=== PATIENT | male | born 1970 | race Two or more races ===

== ENCOUNTER 2024-12-18 19:07 | Emergency (ER) | payer SELFPAY ==
[~2024-12-18] VITALS: Ht 175.3 cm; Wt 97.5 kg
[2024-12-18] MEDS ORDERED: DOXY100C4 PO (21:14)
--- NOTE | 2024-12-18 21:14 | ED.PDOC ---
History of Present Illness(SKN HPI Comments Pt c/o insect bite x3 weeks. Pt says he saw a "flying insect" land on left shoulder and bite him. Pt says as of 3 days ago pain got worse. Noted large area of redness with puncture wound to left shoulder, denies drainage or fevers. Pt rates pain 10/10. Pt is not UTD on tetanus vaccine. Denies fever, chills, na usea, vomiting or any other bites. This is your diabetes or any other known history. Chief Complaint: Insect Bite Time Seen by MD: 19:23 Primary Care Provider: MEI History of Present Illness: Nurses Notes, Medications, Allergies Allergies: Coded Allergies: NO KNOWN ALLERGIES (Unverified , 02/22/14) Home Meds Active Scripts Doxycycline Hyclate (Doxycycline Hyclate) 100 Mg Cap, 100 MG PO BID for 7 Days, #14 CAP Prov:SALLY TABOR READING INTERVENTIONIST 12/18/24 Information Source: Patient Mode of Arrival: Ambulatory Past Medical History PAST MEDICAL HISTORY: Denies Surgical History: Denies all surgeries Family History Family History: Unknown Social History Smoker: Non-Smoker Alcohol: Denies ETOH Use Drugs: Denies Drug Use Constitutional: denies: chills, diaphoresis, fatigue, fever, malaise, sweats, weakness, others EENTM: denies: blurred vision, double vision, ear bleeding, ear discharge, ear drainage, ear pain, ear ringing, eye pain, eye redness, hearing loss, mouth pain, mouth swelling, nasal discharge, nose bleeding, nose congestion, nose pain, photophobia, tearing, throat pain, throat swelling, voice changes, others Respiratory: denies: cough, hemoptysis, orthopnea, SOB at rest, shortness of breath, SOB with excertion, stridor, wheezing, others Cardiovascular: denies: chest pain, dizzy spells, diaphoresis, Dyspnea on exertion, edema, irregular heart beat, left arm pain, lightheadedness, palpitations, PND, syncope, others Gastrointestinal: denies: abdomen distended, abdominal pain, blood streaked bowels, constipated, diarrhea, dysphagia, difficulty swallowing, hematemesis, melena, nausea, poor appetite, poor fluid intake, rectal bleeding, rectal pain, vomiting, others Genitourinary: denies: burning, dysuria, flank pain, frequency, hematuria, incontinence, penile discharge, penile sore, pain, testicle pain, testicle swelling, urgency, others Neurological: denies: dizziness, fainting, headache, left sided numbness, left sided weakness, numbness, paresthesia, pre-existing deficit, right sided numbness, right sided weakness, seizure, speech problems, tingling, tremors, weakness, others Musculoskeletal: denies: back pain, gout, joint pain, joint swelling, muscle pain, muscle stiffness, neck pain, others Integumetry: reports: wounds (Left shoulder); denies: bruises, change in color, change in hair/nails, dryness, laceration, lesions, lumps, rash, others Allergic/Immunocompromised: denies: Difficulty Healing, Frequent Infections, Hives, Itching, others Hematologic/Lymphatic: denies: anemia, blood clots, easy bleeding, easy bruising, swollen glands, others Endocrine: denies: excessive hunger, excessive sweating, excessive thirst, excessive urination, flushing, intolerance to cold, intolerance to heat, unexplained weight gain, unexplained weight loss, others Psychiatric: denies: anxiety, bipolar disorder, depression, hopeless, panic disorder, schizophrenia, sleepless, suicidal, others Physical Exam General Appearance: No Apparent Distress, Normal HEENT: Normal ENT Inspection, Pharynx Normal Neck: Full Range of Motion, Non-Tender Respiratory: Lungs Clear, No Respiratory Distress, Normal Breath Sounds Cardiovascular: No Edema, No JVD, No Murmur, No Gallop, Normal Peripheral Pulses, Regular Rate/Rhythm Breast Exam: Deferred Gastrointestinal: Non Tender, Soft Genitalia: Deferred Pelvic: Deferred Rectal: Deferred Extremities: Normal capillary refill, Normal inspection, Normal range of motion, Non-tender, No pedal edema Musculoskeletal : Apperance: Normal Neurologic: Alert, preschool program director II-XII nml as Tested, No Motor Deficits, Normal Affect, Normal Mood, No Sensory Deficits Cerebellar Function: Normal Reflexes: Normal Skin: Dry, Normal Color, Warm, Wounds (Top of right shoulder noted half-dollar size lesions indurated erythemic with center puncture wound no noted drainage or streaking warm and tender to touch non fluctuant) Lymphatic: No Adenopathy Was a procedure done? Was a procedure done?: No Differential Diagnosis (INTG) Differential Diagnosis: Atopic dermatitis, Cellulitis, Impetigo X-Ray, Labs, Meds, VS Vital Signs Date Time Temp Pulse Resp B/P (MAP) Pulse Ox O2 Delivery O2 Flow Rate FiO2 12/18/24 21:19 99.0 72 19 149/91 (110) 97 99.0 12/18/24 21:19 72 19 97 Room Air 12/18/24 19:20 98.9 77 18 178/93 (121) 96 98.9 Current Medications Medications (Trade) Dose Ordered Sig/Jeremy Route Start Time Stop Time Status Last Admin Ceftriaxone Sodium (Rocephin) 1,000 mg ONCE ONCE IM 12/18/24 21:15 12/18/24 21:16 DC 12/18/24 21:48 Diphtheria/ Tetanus/Acell Pertussis (Boostrix T-Dap) 0.5 ml ONCE ONCE IM 12/18/24 21:15 12/18/24 21:16 DC 12/18/24 21:48 X-Ray, Labs, Meds, VS Comment Patient given Rocephin 1 g IM tolerated well requesting discharge at this time. Outpatient care script doxycycline twice daily x7 days advised to avoid touching the area take medications as prescribed side effects discussed. Follow up with your PCP in 2 days for re-evaluation if not urgent care or back here in the ER. [id number] Tylenol or Motrin as needed for pain per labeled dosing instructions. ER return precautions given patient indicates understanding agrees with discharge plan of care. Time of 1ST Reevaluation: 21:10 Reevaluation 1ST: Improved Patient Education/Counseling: Diagnosis, Treatment, Prognosis, Need For Follow Up Family Education/Counseling: No Family Present Departure 1 Departure Time of Disposition: 21:13 Impression: Primary Impression: Bug bite with infection Qualified Codes: W57.XXXA - Bitten or stung by nonvenomous insect and other nonvenomous arthropods, initial encounter Disposition: HOME / SELF CARE / HOMELESS Condition: Stable e-Prescriptions Doxycycline Hyclate (Doxycycline Hyclate) 100 Mg Cap 100 MG PO BID for 7 Days, #14 CAP Prov: SALLY TABOR 12/18/24 Discharged With: Self Critical Care Note Critical Care Time?: No Stability Stability form required: SALLY Gonzalez Dec 18, 2024 21:14
[2024-12-18 21:19] VITALS: BP 149/91; PULSE 72; RESP 19; TEMP 99; O2SAT 97
[2024-12-18] MEDS: TETANUS-DIPTH-ACEL PERTUSSIS 0.5ML SYR Tdap IM ONE (21:48)
[2024-12-18] MEDS: cefTRIAXone SOD 1,000 MG VL IM ONE (21:48)
== END 2024-12-18 21:59 | disposition home or self-care (01) ==
LOC: ER 19:07
DX: S41.031A Puncture wound without foreign body of right shoulder, initial encounter (principal); W57.XXXA Bitten or stung by nonvenomous insect and other nonvenomous arthropods, initial encounter; Y93.89 Activity, other specified; Y92.89 Other specified places as the place of occurrence of the external cause; Y99.8 Other external cause status
CPT/HCPCS: 90471; 90715; 96372; 99284; J0696

== ENCOUNTER 2024-12-22 16:39 | Inpatient (IN) | payer MEDICAID ==
[~2024-12-22] VITALS: Ht 175.3 cm; Wt 100.0 kg
[~2024-12-22 16:39] MED LIST: DOXY100C4 PO
--- NOTE | 2024-12-22 16:51 | ED.PDOC ---
SOB-HPI HPI Comments HPI: Poor historian. 54-year-old male presents to the emergency department with a chief complaint of shortness of breath onset today 2 hours ago. Patient was seen [facility] 12/18/24 due to wound on LT arm, prescribed Doxycycline, has been compliant with medication. Patient noticed wound LT arm 3 weeks ago, unsure how it was obtained. This morning, patient believes he removed 2 larvas, states they were alive and moving. Vitals Temperature: 97.7 F Respiratory rate: 16 SpO2: 98% Heart rate: 81 Blood pressure: 176/102 Past Medical History: Denies Past Surgical History: Denies Social History: Denies HPI: Poor Historian. Past Medical History: Past Surgical History: REVIEW OF SYSTEMS: CONSTITUTIONAL: Denies acute: fever, diaphoresis, chills, HEAD: Denies acute: headache, photophobia Eyes: Denies acute: Double vision, vision loss, eye pain, eye discharge. EARS: Denies acute: tinnitus, hearing loss, ear discharge, ear pain, THROAT: Denies acute: sore throat, swelling, difficulty swallowing , pain with swallowing, change in voice. NECK: Denies acute: neck pain, neck swelling, stiff neck. HEART: Denies acute : chest pain, palpitations, LUNGS: Denies acute: wheezing, cough, hemoptysis ABDOMEN: Denies acute: abdominal pain, Nausea, Vomiting, diarrhea, melena , hematemesis, hematochezia SKIN: Denies acute: itchiness. EXTREMITIES: Denies acute: calf pain, numbness, tingling, weakness, denies pain in extremity. Denies acute: Low back pain. Neuro: Denies acute: focal neurological deficit, motor or sensory focal neurological deficit, tremors, seizure like activity, confusion, dizziness, change in mental status, loss of bowel or bladder function, cauda equina like symptoms. : Denies acute: dysuria, hematuria, flank pain, increase in urinary frequency. PSYCH: Denies acute: hallucination, suicidal ideation, homicidal ideation. PHYSICAL EXAM: General: ----mild to moderate----acute distress, awake and alert. Head: normocephalic, atraumatic. Neck: supple, trachea is midline, no swelling. Throat: Normal phonation. Eyes:, no erythema, no purulent discharge, no proptosis, no icterus. Heart: regular rate, regular rhythm, no significant murmur appreciated. Lungs: no apparent respiratory distress, Able to speak in full sentences. No wheezing, no rhonchi, no crackles. No stridors Clear to auscultation bilaterally. Abdomen: non tender to palpation, non distended, soft, no guarding, no rebound, + bowel sounds. Neuro: Awake, Alert, oriented to name, self, situation, follows commands GCS=15. Speech is normal. Skin: no petechia, no purpura, no cyanosis, non-pale, not jaundice. Lower extremities: --no - Pitting edema no deformity, no focal swelling, no calf TTP. Makes eye contact. moves all four extremities. Face: no apparent facial droop. Ambulating in the ED independently. Evaluation of the left shoulder wound: Noted ulcerating left deltoid wound with mild erythema and mild swelling. Patient is neurovascularly intact in the affected extremity. Radial pulses palpable. Sensory and motor are present. ED COURSE: Time Seen by MD: 16:45 Primary Care Provider: MEI Reviewed notes: Nurses Notes, Medications, Allergies Information Source: Patient Severity: Moderate Timing: Hours Duration: Since onset Context: At Rest PE Risk Factors: None History of: Recent Antibiotic Prehospital treatment: None Modifying Factors: Nothing Associated Signs and Symptoms: Cough, Other Radiation: No Radiation If cough with SOB: Non-Productive Past Medical History PAST MEDICAL HISTORY: Denies Surgical History: Denies all surgeries Family History Family History: Unknown Social History Smoker: Non-Smoker Alcohol: Denies ETOH Use Drugs: Denies Drug Use Lives In: Home Was a procedure done? Was a procedure done?: No Differential Dx Differential Diagnosis: Other (DDx include ACS, unstable angina, anxiety, PE, pneumothroax, neoplasm, cardiac ischemia, COPD, asthma, CHF, pleural effusion, tobacco abuse, pneumonia, hypoxia, hypercapnia, anemia., infection/sepsis., pulmonary edema. Asthma, Cardiac tamponade, infection.) X-Ray, Labs, Meds, VS Vital Signs Date Time Temp Pulse Resp B/P (MAP) Pulse Ox O2 Delivery O2 Flow Rate FiO2 12/22/24 20:00 97.5 62 15 132/87 (102) 97 97.5 12/22/24 17:17 97.7 68 15 149/78 (101) 95 97.7 12/22/24 17:11 Room Air* 0 21 12/22/24 16:52 97.7 81 16 176/102 (126) 98 97.7 Lab Test 12/22/24 20:14 12/22/24 18:33 12/22/24 18:22 12/22/24 17:17 Range/Units Troponin I High Sensitivity 4 4 3 L </=54 ng/L Blood Gas Specimen Type Arterial Blood Gas Sample Site Left radial Blood Gas Patient Temperature 37.0 Arterial Blood Date Drawn [id number] Arterial Blood pH 7.440 7.350-7.450 Arterial Blood Partial Pressure CO2 36.0 35.0-48.0 mmHg Arterial Blood Partial Pressure O2 85.5 83.0-108.0 mmHg Arterial Blood HCO3 23.9 21.0-28.0 mmol/L Arterial Blood Oxygen Saturation 96.1 94.0-98.0 % Arterial Blood Base Excess 0.2 -2.0-3.0 mmol/L Arterial Blood Oxyhemoglobin 95.3 94.0-98.0 % Arterial Blood Carboxyhemoglobin 0.6 0.5-1.5 % Arterial Blood Methemoglobin 0.2 0.0-1.5 % Moisés Test Yes Blood Gas Total Hemoglobin 13.70 13.5-17.5 g/dL Blood Gas Modality Room air FiO2 % 21.0 White Blood Count 4.7 4.4-10.8 10^3/uL Red Blood Count 4.94 4.5-5.90 10^6/uL Hemoglobin 13.8 13.5-17.5 g/dL Hematocrit 41.5 41.0-53.0 % Mean Corpuscular Volume 83.9 80.0-100.0 fL Mean Corpuscular Hemoglobin 27.9 L 28.0-32.0 pg Mean Corpuscular Hemoglobin Concent 33.2 32.0-36.0 g/dL Red Cell Distribution Width 14.0 11.8-14.3 % Platelet Count 252 140-450 10^3/uL Mean Platelet Volume 7.7 6.9-10.8 fL Neutrophils (%) (Auto) 40.2 37.0-80.0 % Lymphocytes (%) (Auto) 44.2 10.0-50.0 % Monocytes (%) (Auto) 7.1 0.0-12.0 % Eosinophils (%) (Auto) 7.7 H 0.0-7.0 % Basophils (%) (Auto) 0.8 0.0-2.0 % Neutrophils # (Auto) 1.9 1.6-8.6 10 ^3/uL Lymphocytes # (Auto) 2.1 0.4-5.4 10 ^3/uL Monocytes # (Auto) 0.3 0-1.3 10 ^3/uL Eosinophils # (Auto) 0.4 0-0.8 10 ^3/uL Basophils # (Auto) 0 0-0.2 10 ^3/uL Nucleated Red Blood Cells 0.1 % Erythrocyte Sedimentation Rate 18 0-20 mm/hr D-Dimer, Quantitative 0.53 H 0.0-0.49 mg/L FEU Sodium Level 141 136-145 mmol/L Potassium Level 3.7 3.5-5.1 mmol/L Chloride Level 105 98-107 mmol/L Carbon Dioxide Level 26 20-31 mmol/L Anion Gap 10 5-15 Blood Urea Nitrogen 14 9-23 mg/dL Creatinine 1.16 0.700-1.30 mg/dL Glomerular Filtration Rate Calc 75 >90 mL/min BUN/Creatinine Ratio 12.1 10.0-20.0 Serum Glucose 95 74-106 mg/dL Lactic Acid Level 2.0 0.4-2.0 mmol/L Calcium Level 10.1 8.7-10.4 mg/dL Total Bilirubin 0.5 0.2-1.0 mg/dL Aspartate Amino Transferase (AST) 12 L 13-40 U/L Alanine Aminotransferase (ALT) 29 7-40 U/L Alkaline Phosphatase 92 46-116 U/L C-Reactive Protein High Sensitivity 0.73 <1.0 mg/dL B-Type Natriuretic Peptide 11.10 0-100 pg/mL Total Protein 7.5 5.7-8.2 g/dL Albumin 4.8 3.2-4.8 g/dL Current Medications Medications (Trade) Dose Ordered Sig/Jeremy Route Start Time Stop Time Status Last Admin Vancomycin HCl 250 ml @ 250 mls/hr ONCE ONCE IV 12/22/24 19:30 12/22/24 20:29 DC 12/22/24 20:04 [place] [id number] Ph: [phone] DIAGNOSTIC IMAGING Diagnostic Imaging Report : [id number] Signed PATIENT: DUONG MAYNE ACCT: [id number] UNIT: [id number] : 1970 LOC: ER ROOM / BED: / AGE / SEX: 54 / M ADM STATUS: REG ER SERVICE 1643 ORDERING PHYSICIAN: CAYDEN SALAS DO PROCEDURE(s): CXRP - CHEST PORTABLE REASON: sob ORDER NUMBER(s): [id number], ACCESSION NUMBER(s): [id number] CHEST RADIOGRAPH Indication: sob Technique: Single frontal view of the chest was obtained Comparison: None FINDINGS: Lines and Tubes: None Lungs: No focal consolidation. Pleura: No effusion. No pneumothorax. Cardiomediastinal contours: Unremarkable Bones: No acute osseous abnormality. IMPRESSION: 1. No acute cardiopulmonary disease. ATED BY: SELWYN JOSEPH MD DICTATED DATE/TIME: 12/22/241823 SIGNED BY: SELWYN JOSEPH MD SIGNED DATE/TIME: 12/22/241823 CC: [place] [id number] Ph: [phone] DIAGNOSTIC IMAGING Diagnostic Imaging Report : [id number] Signed PATIENT: DUONG WOODS ACCT: [id number] UNIT: [id number] : 1970 LOC: ER ROOM / BED: / AGE / SEX: 54 / M ADM STATUS: REG ER SERVICE 181 ORDERING PHYSICIAN: CAYDEN SALAS DO PROCEDURE(s): CTACH - CT ANGIO CHEST CONTRAST REASON: sob ORDER NUMBER(s): [id number], ACCESSION NUMBER(s): [id number] CTA Chest with intravenous contrast INDICATION: sob COMPARISON: None TECHNIQUE: Multidetector spiral CTA of the chest was performed of the chest with intravenous contrast. PULMONARY ANGIOGRAPHY PROTOCOL was utilized using a bolus- tracking technique centered on the main pulmonary artery. Axial, coronal and sagittal multiplanar and MIP reformats were performed. Radiation Dose : 1. Chest: CTDI volume is mGy. Dose-length product is mGy*cm The dose indicators for CT are the volume Computed Tomography (CT) Dose Index (CTDIvol) and the Dose Length Product (DLP), and are measured in units of mGy and mGy-cm, respectively. These indicators are not patient dose, but values generated from the CT scanner acquisition factors. The report includes radiation exposure data for exposures received during this examination. Findings: Pulmonary artery: No evidence of pulmonary embolism. Lower neck: Unremarkable. Lungs: No consolidation. Pleura: No pleural effusion or pneumothorax. Heart/Vascular Structures: Normal heart size. No pericardial effusion. Normal thoracic aorta. Mediastinum / Lymph Nodes: No abnormality demonstrated. No lymphadenopathy. Musculoskeletal: No osseous abnormality. Soft tissues: Unremarkable. Visualized Upper abdomen: Unremarkable. IMPRESSION: No abnormality demonstrated. ATED BY: JHONY SARKAR MD DICTATED DATE/TIME: 12/22/242112 SIGNED BY: JHONY SARKAR MD SIGNED DATE/TIME: 12/22/242112 CC: [place] [id number] Ph: [phone] DIAGNOSTIC IMAGING Diagnostic Imaging Report : [id number] Signed PATIENT: DUONG WOODS AACCT: [id number] UNIT: [id number] : 1970 LOC: ER ROOM / BED: / AGE / SEX: 54 / M ADM STATUS: REG ER SERVICE 11 ORDERING PHYSICIAN: CAYDEN SALAS DO PROCEDURE(s): UECIR - LT UPPER EXTREMITY W CONTRAS REASON: wound/abscess ORDER NUMBER(s): [id number], ACCESSION NUMBER(s): [id number] EXAM: CT LT UPPER EXTREMITY W CONTRAS INDICATION: wound/abscess EXAM DATE: 12/22/2024 09:16 PM COMPARISON: None TECHNIQUE: Multiple axial CT images of the left upper extremity were obtained using bone algorithm. Axial and coronal reformatting was done. Bone and soft tissue windows were reviewed. Study was done after administration 100 mL Omnipaque 300 with none wasted Radiation Dose Information: CT Dose: CTDI volume is 13.3 mGy. Dose-length product is 738.07 mGy*cm Findings: Left forearm is intact. The left elbow is unremarkable. No evidence for an abscess or fluid collection. Bones are unremarkable. IMPRESSION: 1. No evidence for abscess or fluid collection. No evidence for cellulitis ATED BY: SELWYN JOSEPH MD DICTATED DATE/TIME: 12/22/242158 SIGNED BY: SELWYN JOSEPH MD SIGNED DATE/TIME: 12/22/242158 CC: Time of 1ST Reevaluation: 17:15 Reevaluation 1ST: Unchanged Patient Education/Counseling: Diagnosis, Treatment, Prognosis Family Education/Counseling: No Family Present Comments Patient presented with the above HPI.---dyspnea and arm infection---workup was initiated. patient was found with the above mentioned diagnosis. the following medications were ordered: please refer to order lists of meds and tests obtained by myself Dr. Salas. Patient ED course and VS have been stabilized. Patient has been reassessed in the ED and remained in a stable condition. Pertinent incidental findings were discussed with the patient and/or family. Patient/family voices understanding and is agreeable with plan. Patient has been observed in the ED adequate length of time to insure improvement/stability. Escalation of care considered: Consideration of escalation to observation or admission Patient was ADMITTED to the medicine team for further evaluation and treatment of their presentation. All the reports of any imaging studies that were ordered by myself were reviewed by myself. As far as the patient's left arm abscess/infection. Patient is already on active antibiotics without any improvement. Differential diagnosis includes. Ddx include but not limited to cellulitis, abscess, lymphadenitis, lymphangitis, trauma, DVT, venous insufficiency, trauma, r/o septic joint., r/o associated osteomylitis, , deep tissue infection, neoplasm, necrotizing fascitits, hematoma , infestation, Departure 1 Departure Time of Disposition: 19:39 Impression: Primary Impression: Left arm cellulitis Additional Impression: Dyspnea Disposition: ADMITTED INPATIENT Admit to: [facility] Condition: Guarded Discharged With: Self Critical Care Note Critical Care Time?: No Heart Score Heart Score: Heart Score Response (Comments) Value History Slightly Suspicious 0 EKG Normal 0 Age 45-64 1 Risk Factors 1 or 2 risk factors 1 Troponin Normal limit 0 Total 2 I personally scribed for JOSUEADEBAYOE J DO ([email or web address]) on 12/22/24 at 16:50. Electronically submitted by Susan Soto ([email or web address]). I personally scribed for JOSUEADEBAYOE J DO ([email or web address]) on 12/22/24 at 17:04. Electronically submitted by Susan Soto ([email or web address]). I personally scribed for JOSUECAYDEN J DO ([email or web address]) on 12/22/24 at 17:46. Electronically submitted by Susan Soto ([email or web address]). I personally scribed for JOSUECAYDEN J DO ([email or web address]) on 12/22/24 at 19:42. Electronically submitted by Juan Antonio Hansen ([email or web address]). I personally scribed for JOSUEADEBAYOE J DO ([email or web address]) on 12/22/24 at 22:04. Electronically submitted by Juan Antonio Hansen ([email or web address]). JOSUE,CAYDEN J DO Dec 22, 2024 16:50
[2024-12-22 17:41] LABS: Basophils # (auto) 0 10 ^3/uL (0-0.2); Basophils % (auto) 0.8 % (0.0-2.0); Eosinophils # (auto) 0.4 10 ^3/uL (0-0.8); Eosinophils % (auto) 7.7 % (0.0-7.0); Hematocrit 41.5 % (41.0-53.0); Hemoglobin 13.8 g/dL (13.5-17.5); Lymphocytes # (auto) 2.1 10 ^3/uL (0.4-5.4); Lymphocytes % (auto) 44.2 % (10.0-50.0); Mean Corpuscular Hemoglobin 27.9 pg (28.0-32.0); Mean Corpuscular Hgb Conc. 33.2 g/dL (32.0-36.0); Mean Corpuscular Volume 83.9 fL (80.0-100.0); Monocytes # (auto) 0.3 10 ^3/uL (0-1.3); Monocytes % (auto) 7.1 % (0.0-12.0); Neutrophils # (auto) 1.9 10 ^3/uL (1.6-8.6); Neutrophils % (auto) 40.2 % (37.0-80.0); Nucleated Red Blood Cells % 0.1 %; Platelet Count (auto) 252 10^3/uL (140-450); Red Blood Cells 4.94 10^6/uL (4.5-5.90); White Blood Cell 4.7 10^3/uL (4.4-10.8)
[2024-12-22 17:55] LABS: Alanine Aminotransferase 29 U/L (7-40); Alkaline Phosphatase 92 U/L (46-116); Anion Gap 10 (5-15); BUN/Creatinine Ratio 12.1 (10.0-20.0); Bilirubin, Total 0.5 mg/dL (0.2-1.0); Blood Urea Nitrogen 14 mg/dL (9-23); Calcium 10.1 mg/dL (8.7-10.4); Carbon Dioxide 26 mmol/L (20-31); Chloride 105 mmol/L (98-107); Glucose 95 mg/dL (74-106); Potassium 3.7 mmol/L (3.5-5.1); Sodium 141 mmol/L (136-145); Total Protein 7.5 g/dL (5.7-8.2)
[2024-12-22 17:56] LABS: Albumin 4.8 g/dL (3.2-4.8); Aspartate Aminotransferase 12 U/L (13-40)
[2024-12-22 18:27] LABS: Base Excess 0.2 mmol/L (-2.0-3.0)
--- NOTE | 2024-12-22 18:27 | DVH ---
CHEST RADIOGRAPH Indication: sob Technique: Single frontal view of the chest was obtained Comparison: None FINDINGS: Lines and Tubes: None Lungs: No focal consolidation. Pleura: No effusion. No pneumothorax. Cardiomediastinal contours: Unremarkable Bones: No acute osseous abnormality. IMPRESSION: 1. No acute cardiopulmonary disease.
[2024-12-22 18:41] LABS: Erythrocyte Sedimentation Rate 18 mm/hr (0-20)
[2024-12-22 19:15] VITALS: PULSE 66; O2SAT 95
[2024-12-22] MEDS: VANCOMYCIN 1GM/200ML PM 250 ML IV ONE (20:04)
[2024-12-22] MEDS: IOHEXOL 350 MG/ML 100ML IJ ONE (20:26)
[2024-12-22] MEDS: IOHEXOL 300 MG/ML 100ML BOTTLE IJ ONE (21:13)
--- NOTE | 2024-12-22 21:15 | DVH ---
CTA Chest with intravenous contrast INDICATION: sob COMPARISON: None TECHNIQUE: Multidetector spiral CTA of the chest was performed of the chest with intravenous contrast . PULMONARY ANGIOGRAPHY PROTOCOL was utilized using a bolus-tracking technique centered on the main p ulmonary artery. Axial, coronal and sagittal multiplanar and MIP reformats were performed. Radiation Dose : 1. Chest: CTDI volume is mGy. Dose-length product is mGy*cm The dose indicators for CT are the volume Computed Tomography (CT) Dose Index (CTDIvol) and the Dose Length Product (DLP), and are measured in units of mGy and mGy-cm, respectively. These indicators are not patient dose, but values generated from the CT scanner acquisition factors. The report includes radiation exposure data for exposures received during this examination. Findings: Pulmonary artery: No evidence of pulmonary embolism. Lower neck: Unremarkable. Lungs: No consolidation. Pleura: No pleural effusion or pneumothorax. Heart/Vascular Structures: Normal heart size. No pericardial effusion. Normal thoracic aorta. Mediastinum / Lymph Nodes: No abnormality demonstrated. No lymphadenopathy. Musculoskeletal: No osseous abnormality. Soft tissues: Unremarkable. Visualized Upper abdomen: Unremarkable. IMPRESSION: No abnormality demonstrated.
--- NOTE | 2024-12-22 22:01 | DVH ---
EXAM: CT LT UPPER EXTREMITY W CONTRAS INDICATION: wound/abscess EXAM DATE: 12/22/2024 09:16 PM COMPARISON: None TECHNIQUE: Multiple axial CT images of the left upper extremity were obtained using bone algorithm. A xial and coronal reformatting was done. Bone and soft tissue windows were reviewed. Study was done after administration 100 mL Omnipaque 300 with none wasted Radiation Dose Information: CT Dose: CTDI volume is 13.3 mGy. Dose-length product is 738.07 mGy*cm Findings: Left forearm is intact. The left elbow is unremarkable. No evidence for an abscess or fluid collecti on. Bones are unremarkable. IMPRESSION: 1. No evidence for abscess or fluid collection. No evidence for cellulitis
--- NOTE | 2024-12-22 22:13 | DVHHPRES ---
History of Present Illness Resident Creating Document: TYLER ELIAS RESIDENT History of Present Illness 54-year-old male with no past medical history presented with complaints of left arm redness associated with lower were coming out of the bite site. Patient mentioned that he had visited [facility] and had a botfly bite 3 weeks ago. pt visited ER for a furuncle like skin infection on 12/19/24, where he was discharged with doxycycline which didn't improve the symptoms and later patient had larvae coming out of 1 site which he removed at home with tweezers, patient had another larvae coming out of the 2nd site which he removed again and came to the ER as he was feeling something is moving in the skin. He also mentioned some dry cough which started at the similar time denied any complaints of SOB, palpitations, wheezing, chest pain, headache, dizziness. PMH denied PSH denied Medication history Denied Allergic history no significant allergic history Family history Non significant Social history Denied any smoking, alcohol, marijuana or any other drug intake Review of Systems Review of Systems as described in the HPI Allergies: Coded Allergies: NO KNOWN ALLERGIES (Unverified , 02/22/14) Exam Vital Signs Vital Signs Date Time Temp Pulse Resp B/P (MAP) Pulse Ox O2 Delivery O2 Flow Rate FiO2 12/22/24 20:00 97.5 62 15 132/87 (102) 97 97.5 12/22/24 17:11 Room Air* 0 21 Exam Examination General Appearance: Alert, Oriented X3, Cooperative, No acute distress HEENT: EOMI Respiratory: Clear to auscultation, Normal air movement Cardiovascular: Regular rate, Normal S1, Normal S2 Abdominal: Normal bowel sounds Extremities: No cyanosis, No edema, Normal pulses, No tenderness/swelling Neuro: Normal gait, Normal speech, Strength at 5/5 X4 ext, Normal tone, Sensation intact, Cranial nerves 3-12 NL, Reflexes 2+ Psych/Mental Status: Mental status NL, Mood NL Skin: Left shoulder furuncle like skin lesion at two different site Labs/Xrays Labs Test 12/22/24 20:14 12/22/24 18:22 12/22/24 17:17 Range/Units Troponin I High Sensitivity 4 </=54 ng/L Blood Gas Specimen Type Arterial Blood Gas Sample Site Left radial Blood Gas Patient Temperature 37.0 Arterial Blood Date Drawn [id number] Arterial Blood pH 7.440 7.350-7.450 Arterial Blood Partial Pressure CO2 36.0 35.0-48.0 mmHg Arterial Blood Partial Pressure O2 85.5 83.0-108.0 mmHg Arterial Blood HCO3 23.9 21.0-28.0 mmol/L Arterial Blood Oxygen Saturation 96.1 94.0-98.0 % Arterial Blood Base Excess 0.2 -2.0-3.0 mmol/L Arterial Blood Oxyhemoglobin 95.3 94.0-98.0 % Arterial Blood Carboxyhemoglobin 0.6 0.5-1.5 % Arterial Blood Methemoglobin 0.2 0.0-1.5 % Moisés Test Yes Blood Gas Total Hemoglobin 13.70 13.5-17.5 g/dL Blood Gas Modality Room air FiO2 % 21.0 White Blood Count 4.7 4.4-10.8 10^3/uL Red Blood Count 4.94 4.5-5.90 10^6/uL Hemoglobin 13.8 13.5-17.5 g/dL Hematocrit 41.5 41.0-53.0 % Mean Corpuscular Volume 83.9 80.0-100.0 fL Mean Corpuscular Hemoglobin 27.9 L 28.0-32.0 pg Mean Corpuscular Hemoglobin Concent 33.2 32.0-36.0 g/dL Red Cell Distribution Width 14.0 11.8-14.3 % Platelet Count 252 140-450 10^3/uL Mean Platelet Volume 7.7 6.9-10.8 fL Neutrophils (%) (Auto) 40.2 37.0-80.0 % Lymphocytes (%) (Auto) 44.2 10.0-50.0 % Monocytes (%) (Auto) 7.1 0.0-12.0 % Eosinophils (%) (Auto) 7.7 H 0.0-7.0 % Basophils (%) (Auto) 0.8 0.0-2.0 % Neutrophils # (Auto) 1.9 1.6-8.6 10 ^3/uL Lymphocytes # (Auto) 2.1 0.4-5.4 10 ^3/uL Monocytes # (Auto) 0.3 0-1.3 10 ^3/uL Eosinophils # (Auto) 0.4 0-0.8 10 ^3/uL Basophils # (Auto) 0 0-0.2 10 ^3/uL Nucleated Red Blood Cells 0.1 % Erythrocyte Sedimentation Rate 18 0-20 mm/hr D-Dimer, Quantitative 0.53 H 0.0-0.49 mg/L FEU Sodium Level 141 136-145 mmol/L Potassium Level 3.7 3.5-5.1 mmol/L Chloride Level 105 98-107 mmol/L Carbon Dioxide Level 26 20-31 mmol/L Anion Gap 10 5-15 Blood Urea Nitrogen 14 9-23 mg/dL Creatinine 1.16 0.700-1.30 mg/dL Glomerular Filtration Rate Calc 75 >90 mL/min BUN/Creatinine Ratio 12.1 10.0-20.0 Serum Glucose 95 74-106 mg/dL Lactic Acid Level 2.0 0.4-2.0 mmol/L Calcium Level 10.1 8.7-10.4 mg/dL Total Bilirubin 0.5 0.2-1.0 mg/dL Aspartate Amino Transferase (AST) 12 L 13-40 U/L Alanine Aminotransferase (ALT) 29 7-40 U/L Alkaline Phosphatase 92 46-116 U/L C-Reactive Protein High Sensitivity 0.73 <1.0 mg/dL B-Type Natriuretic Peptide 11.10 0-100 pg/mL Total Protein 7.5 5.7-8.2 g/dL Albumin 4.8 3.2-4.8 g/dL Assessment/Plan Assessment/Plan Assessment and plan # furuncle like lesion with larvae infestation 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 ) -petroleum jelly -will evaluate for oozing out larvae, will use tweezers to extract # left arm cellulitis -started IV antibiotics, switch to oral Case discussion with Dr Bullock Plan discussed with: Other My Orders Orders - TYLER ELIAS RESIDENT Procedure Category Date Status Time Admit ADMIT 12/22/24 Transmitted 22:11 Oxygen By Nasal RT 12/22/24 Transmitted Cannula 22:11 Notify Of Changes [facility] 12/22/24 Transmitted From Base 22:11 Risk Assessment Analyst For [facility] 12/22/24 Transmitted 24 Hours 22:11 Emergency Dysrhythmia [facility] 12/22/24 Transmitted Protocol 22:11 Rhythm Strips Once [facility] 12/22/24 Transmitted Every Shift 22:11 Date of Service: Dec 22, 2024 Billing Provider: VIRAJ BULLOCK MD Common Visit Codes: [id number] INP/OBS CARE (HIGH) TYLER ELIAS RESIDENT Dec 22, 2024 22:13 VIRAJ BULLOCK MD Dec 23, 2024 13:34
[2024-12-22] MEDS: NEOMYCIN-BACITRACIN-POLYM 15GM TOP OINT TOP SCH (22:30)
[2024-12-22] MEDS: LIDOCAINE HCL 2% TOP JELLY 5ML TOP ONE (22:31)
[2024-12-22] MEDS: PIPERACILLIN-TAZOB 3.375GM 100 ML IV ONE (23:00)
[2024-12-22] MEDS: NEOMYCIN-BACITRACIN-POLYM UNITDOSE PKG TOP OINT TOP ONE (23:09)
[2024-12-22] MEDS ORDERED: LIDOCAINE HCL 5 % TOP OINT 35 GM TOP ONE (23:15)
[2024-12-22] MEDS: LIDOCAINE VISCOUS 2% 15ML UD MT ONE (23:30)
[2024-12-23] MEDS: ceFAZolin 1GM/50ML 50 ML IV ONE (03:20)
[2024-12-23] MEDS: VASELINE LIP THERAPY 10gm TOP PRN (03:57)
[2024-12-23 07:47] VITALS: PULSE 55; RESP 13; O2SAT 96
[2024-12-23] MEDS: ceFAZolin 1GM/50ML 50 ML IV SCH (09:08)
--- NOTE | 2024-12-23 09:24 | DVHPNRES ---
Progress Note Date Seen: Dec 23, 2024 Resident Creating Document: OCTAVIA POSADAS RESIDENT Medical Necessity Reason Pt with a Central, PICC or Fol: No Subjective Review of Systems Patient was 54 years old male with no significant past medical history came with a complaint of left upper arm pain. As per patient 3 weeks before he noticed pain and some swelling in the left upper arm around the time he was walking in [facility]. Patient was not sure if he got any bug bite or not but he noticed the swelling initially 1 0 2 was red, warm, tender, pain 10/10 in severity. Denied any fever. Patient thereafter noticed a Larva coming outoff of the swelling on January 04. Followed by on December 16, 2024 patient noticed a Larva coming out came from home with a close by area which was also swollen and red of the left upper. Patient visited [facility] ER on 12/19/2024 and he got some vaccine lactate tenderness and was treated with doxycycline for Furuncle. Couple of days before patient had some running nose, cough with clear phlegm, some headache. But symptoms did not resolve and patient felt like someone was moving analysis skin and that is why he came back. Patient reported he talked to his family living in [facility] and 1 they saw they felt like it was botfly bite. Initial lab work was nonsignificant. CXR no acute cardiopulmonary disease. CT angio of the chest no abnormality demonstrated. Doppler study of the left upper extremity-1. No evidence for abscess or fluid collection. No evidence for cellulitis PMH-none PSH- none Allergy- NKDA Personal History/ Social History- patient denies all, lives with the family Patient was seen today at the bedside. Patient Cardiovascular- deny acute chest pain or shortness of breath or cough or palpitation Respiratory denies cough or short of breath or wheezing Gastrointestinal- denies any rectal bleeding, nausea or vomiting Musculoskeletal-denies acute joint swelling or tenderness or redness Neurological- denies acute dysarthria, dysphagia, change in vision Psychiatry- denies depression or SI or HI Skin- denies acute rash or purpura Patient was seen today for clinical evaluation. Labs and chart reviewed. Left upper arm is mildly swollen with 2 furuncle with exposed mouth. No acute lobar coming out. Patient denied any fever. Objective vital signs Vital Sign Date Time Temp Pulse Resp B/P (MAP) Pulse Ox O2 Delivery O2 Flow Rate FiO2 12/23/24 08:00 57 12/23/24 07:47 13 121/76 (91) 96 12/23/24 07:47 Room Air* 0 21 12/23/24 07:05 98.1 98.1 Total Intake and Output 12/22/24 12/22/24 12/23/24 15:00 23:00 07:00 Intake Total 400 ml Balance 400 ml medications Current Medications Medications Dose Ordered Sig/Jeremy Route Start Time Stop Time Status Last Admin Dose Admin Neomycin/ Polymyxin/ Bacitracin 1 applic BID TOP 12/22/24 22:30 12/23/24 05:20 1 APPLIC Cefazolin Sodium 50 ml @ 100 mls/hr Q6H IV 12/23/24 08:00 12/23/24 09:08 100 MLS/HR Emollient Ointment 1 applic PRN PRN TOP 12/23/24 01:15 Examination General examination- HEENT- PEERLA, no acute nasal discharge Cardiovascular- S1-S2 audible, rate and rhythm regular, no murmur Respiratory- CTAB, no wheeze or rhonchi Gastrointestinal-nontender, bowel sound+. Nondistended Musculoskeletal-no acute joint swelling or tenderness or redness Lower extremity- Neurological- cranial nerves intact, no acute dysarthria or dysphagia Psychiatry- denies depression or SI or HI Skin- no acute rash or purpura laboratory and microbiology Laboratory Tests 12/22/24 17:17 Test 12/22/24 17:17 Range/Units Serum Glucose 95 74-106 mg/dL Problem List/Assessment/Plan Problem List/Assessment/Plan Acute cellulitis of the left upper arm - Goals of care, Code status ; discussed with >15 minutes PUD prophylaxis: DVT prophylaxis: Patient ambulating Plan discussed with Dr. Hayden , nursing staff, Total time spent on patient evaluation, chart review, assessment and plan, discussion discussion >35 minutes Plan discussed with: Patient, Spouse, Other (RN) OCTAVIA POSADAS RESIDENT Dec 23, 2024 09:24
[2024-12-23 10:00] VITALS: TEMP 98.1
[2024-12-23 10:06] LABS: Basophils # (auto) 0 10 ^3/uL (0-0.2); Basophils % (auto) 0.3 % (0.0-2.0); Eosinophils # (auto) 0.3 10 ^3/uL (0-0.8); Eosinophils % (auto) 8.1 % (0.0-7.0); Hematocrit 42.4 % (41.0-53.0); Lymphocytes # (auto) 1.4 10 ^3/uL (0.4-5.4); Mean Corpuscular Hemoglobin 27.5 pg (28.0-32.0); Mean Corpuscular Volume 83.4 fL (80.0-100.0); Monocytes # (auto) 0.2 10 ^3/uL (0-1.3); Monocytes % (auto) 5.8 % (0.0-12.0); Neutrophils # (auto) 2.1 10 ^3/uL (1.6-8.6); Neutrophils % (auto) 50.8 % (37.0-80.0); Nucleated Red Blood Cells % 0.1 %; Platelet Count (auto) 248 10^3/uL (140-450); Red Blood Cells 5.09 10^6/uL (4.5-5.90); Red Cell Distribution Width 14.1 % (11.8-14.3); White Blood Cell 4.1 10^3/uL (4.4-10.8)
[2024-12-23 10:12] LABS: Chloride 105 mmol/L (98-107); Potassium 3.9 mmol/L (3.5-5.1); Sodium 139 mmol/L (136-145)
[2024-12-23 10:13] LABS: Anion Gap 8 (5-15); Carbon Dioxide 26 mmol/L (20-31)
[2024-12-23 10:18] LABS: BUN/Creatinine Ratio 9.3 (10.0-20.0); Blood Urea Nitrogen 10 mg/dL (9-23); Glucose 105 mg/dL (74-106)
[2024-12-23 12:00] VITALS: BP 134/75; PULSE 59; RESP 13; O2SAT 92
--- NOTE | 2024-12-23 13:30 | DVHDSRES ---
Discharge Summary Date of Admission Resident Creating Document: OCTAVIA POSADAS RESIDENT Dec 22, 2024 at 22:11 Admitting Diagnosis Acute cellulitis Labs/Diagnostic Data: Laboratory Results Test 12/23/24 09:45 12/22/24 20:14 12/22/24 18:22 12/22/24 17:17 White Blood Count 4.1 10^3/uL (4.4-10.8) Red Blood Count 5.09 10^6/uL (4.5-5.90) Hemoglobin 14.0 g/dL (13.5-17.5) Hematocrit 42.4 % (41.0-53.0) Mean Corpuscular Volume 83.4 fL (80.0-100.0) Mean Corpuscular Hemoglobin 27.5 pg (28.0-32.0) Mean Corpuscular Hemoglobin Concent 33.0 g/dL (32.0-36.0) Red Cell Distribution Width 14.1 % (11.8-14.3) Platelet Count 248 10^3/uL (140-450) Mean Platelet Volume 7.5 fL (6.9-10.8) Neutrophils (%) (Auto) 50.8 % (37.0-80.0) Lymphocytes (%) (Auto) 35.0 % (10.0-50.0) Monocytes (%) (Auto) 5.8 % (0.0-12.0) Eosinophils (%) (Auto) 8.1 % (0.0-7.0) Basophils (%) (Auto) 0.3 % (0.0-2.0) Neutrophils # (Auto) 2.1 10 ^3/uL (1.6-8.6) Lymphocytes # (Auto) 1.4 10 ^3/uL (0.4-5.4) Monocytes # (Auto) 0.2 10 ^3/uL (0-1.3) Eosinophils # (Auto) 0.3 10 ^3/uL (0-0.8) Basophils # (Auto) 0 10 ^3/uL (0-0.2) Nucleated Red Blood Cells 0.1 % Sodium Level 139 mmol/L (136-145) Potassium Level 3.9 mmol/L (3.5-5.1) Chloride Level 105 mmol/L (98-107) Carbon Dioxide Level 26 mmol/L (20-31) Anion Gap 8 (5-15) Blood Urea Nitrogen 10 mg/dL (9-23) Creatinine 1.08 mg/dL (0.700-1.30) Glomerular Filtration Rate Calc 82 mL/min (>90) BUN/Creatinine Ratio 9.3 (10.0-20.0) Serum Glucose 105 mg/dL (74-106) Hemoglobin A1c 5.2 % A1C (<5.7) Calcium Level 10.0 mg/dL (8.7-10.4) Thyroid Stimulating Hormone (TSH) 1.39 uIU/mL (0.55-4.78) Troponin I High Sensitivity 4 ng/L (</=54) Blood Gas Specimen Type Arterial Blood Gas Sample Site Left radial Blood Gas Patient Temperature 37.0 Arterial Blood Date Drawn [id number] Arterial Blood pH 7.440 (7.350-7.450) Arterial Blood Partial Pressure CO2 36.0 mmHg (35.0-48.0) Arterial Blood Partial Pressure O2 85.5 mmHg (83.0-108.0) Arterial Blood HCO3 23.9 mmol/L (21.0-28.0) Arterial Blood Oxygen Saturation 96.1 % (94.0-98.0) Arterial Blood Base Excess 0.2 mmol/L (-2.0-3.0) Arterial Blood Oxyhemoglobin 95.3 % (94.0-98.0) Arterial Blood Carboxyhemoglobin 0.6 % (0.5-1.5) Arterial Blood Methemoglobin 0.2 % (0.0-1.5) Moisés Test Yes Blood Gas Total Hemoglobin 13.70 g/dL (13.5-17.5) Blood Gas Modality Room air FiO2 % 21.0 Erythrocyte Sedimentation Rate 18 mm/hr (0-20) D-Dimer, Quantitative 0.53 mg/L FEU (0.0-0.49) Lactic Acid Level 2.0 mmol/L (0.4-2.0) Total Bilirubin 0.5 mg/dL (0.2-1.0) Aspartate Amino Transferase (AST) 12 U/L (13-40) Alanine Aminotransferase (ALT) 29 U/L (7-40) Alkaline Phosphatase 92 U/L (46-116) C-Reactive Protein High Sensitivity 0.73 mg/dL (<1.0) B-Type Natriuretic Peptide 11.10 pg/mL (0-100) Total Protein 7.5 g/dL (5.7-8.2) Albumin 4.8 g/dL (3.2-4.8) Other Laboratory Tests 12/23/24 09:45 Brief Hx & Hospital Course: Patient is 54 years old male with no significant past medical history came with a complaint of left upper arm pain. As per patient 3 weeks before he noticed pain and some swelling in the left upper arm around the time he was walking in [facility] in [facility]. Patient was not sure if he got any bug bite or not but he noticed the swelling initially 1 0 2 was red, warm, tender, pain 10/10 in severity. Denied any fever. Patient thereafter noticed a Larva coming outoff of the swelling on January 04. Followed by on December 16, 2024 patient noticed a Larva coming out came from home with a close by area which was also swollen and red of the left upper. Patient visited [facility] ER on 12/19/2024 and he got some vaccine lactate tenderness and was treated with doxycycline for Furuncle. Couple of days before patient had some running nose, cough with clear phlegm, some headache. But symptoms did not resolve and patient felt like someone was moving analysis skin and that is why he came back. Patient reported he talked to his family living in [facility] and 1 they saw they felt like it was botfly bite. Initial lab work was nonsignificant. CXR no acute cardiopulmonary disease. CT angio of the chest no abnormality demonstrated. Doppler study of the left upper extremity-1. No evidence for abscess or fluid collection. No evidence for cellulitis Hospital course- Patient was 54 years old male with no significant past medical history came with a complaint of left upper arm pain. As per patient 3 weeks before he noticed pain and some swelling in the left upper arm around the time he was walking in [facility] in [facility]. Patient was not sure if he got any bug bite or not but he noticed the swelling initially 1 0 2 was red, warm, tender, pain 10/10 in severity. Denied any fever. Patient thereafter noticed a Larva coming outoff of the swelling on January 04. Followed by on December 16, 2024 patient noticed a Larva coming out came from home with a close by area which was also swollen and red of the left upper. Patient visited [facility] ER on 12/19/2024 and he got some vaccine lactate tenderness and was treated with doxycycline for Furuncle. Couple of days before patient had some running nose, cough with clear phlegm, some headache. But symptoms did not resolve and patient felt like someone was moving analysis skin and that is why he came back. Patient reported he talked to his family living in [facility] and 1 they saw they felt like it was botfly bite. Initial lab work was nonsignificant. CXR no acute cardiopulmonary disease. CT angio of the chest no abnormality demonstrated. Doppler study of the left upper extremity-1. No evidence for abscess or fluid collection. No evidence for cellulitis. Patient's symptom improved with the conservative management. No lab was noted on exam or during hospitalization. Patient is being discharged with doxycycline 100 mg p.o. b.i.d. for 7 days. Patient was advised to follow up with the discharge clinic in 1 week. Patient was also advised to follow up with the primary care physician. Patient's meds were sent to the pharmacy electronically. Patient was hemodynamically stable on discharge. 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 b.i.d. for 7 days Please follow up with the primary care physician in 1 week Also follow up in the discharge clinic in 1 week Total time in clinical assessment, chart review, discharging spent>30 minutes Operations or Procedures [place] [id number] Ph: [phone] DIAGNOSTIC IMAGING Diagnostic Imaging Report : [id number] Signed PATIENT: DUONG MAYEN ACCT: [id number] UNIT: [id number] : 1970 LOC: ER ROOM / BED: / AGE / SEX: 54 / M ADM STATUS: REG ER SERVICE 1643 ORDERING PHYSICIAN: CAYDEN SALAS DO PROCEDURE(s): CXRP - CHEST PORTABLE REASON: sob ORDER NUMBER(s): [id number], ACCESSION NUMBER(s): [id number] CHEST RADIOGRAPH Indication: sob Technique: Single frontal view of the chest was obtained Comparison: None FINDINGS: Lines and Tubes: None Lungs: No focal consolidation. Pleura: No effusion. No pneumothorax. Cardiomediastinal contours: Unremarkable Bones: No acute osseous abnormality. IMPRESSION: 1. No acute cardiopulmonary disease. ATED BY: SELWYN JOSEPH MD DICTATED DATE/TIME: 12/22/241823 SIGNED BY: SELWYN JOSEPH MD SIGNED DATE/TIME: 12/22/241823 CC: [place] [id number] Ph: [phone] DIAGNOSTIC IMAGING Diagnostic Imaging Report : [id number] Signed PATIENT: DUONG WOODS AACCT: [id number] UNIT: [id number] : 1970 LOC: ER ROOM / BED: / AGE / SEX: 54 / M ADM STATUS: REG ER SERVICE 11 ORDERING PHYSICIAN: CAYDEN SALAS DO PROCEDURE(s): CTACH - CT ANGIO CHEST CONTRAST REASON: sob ORDER NUMBER(s): [id number], ACCESSION NUMBER(s): [id number] CTA Chest with intravenous contrast INDICATION: sob COMPARISON: None TECHNIQUE: Multidetector spiral CTA of the chest was performed of the chest with intravenous contrast. PULMONARY ANGIOGRAPHY PROTOCOL was utilized using a bolus- tracking technique centered on the main pulmonary artery. Axial, coronal and sagittal multiplanar and MIP reformats were performed. Radiation Dose : 1. Chest: CTDI volume is mGy. Dose-length product is mGy*cm The dose indicators for CT are the volume Computed Tomography (CT) Dose Index (CTDIvol) and the Dose Length Product (DLP), and are measured in units of mGy and mGy-cm, respectively. These indicators are not patient dose, but values generated from the CT scanner acquisition factors. The report includes radiation exposure data for exposures received during this examination. Findings: Pulmonary artery: No evidence of pulmonary embolism. Lower neck: Unremarkable. Lungs: No consolidation. Pleura: No pleural effusion or pneumothorax. Heart/Vascular Structures: Normal heart size. No pericardial effusion. Normal thoracic aorta. Mediastinum / Lymph Nodes: No abnormality demonstrated. No lymphadenopathy. Musculoskeletal: No osseous abnormality. Soft tissues: Unremarkable. Visualized Upper abdomen: Unremarkable. IMPRESSION: No abnormality demonstrated. ATED BY: JHONY SARKAR MD DICTATED DATE/TIME: 12/22/242112 SIGNED BY: JHONY SARKAR MD SIGNED DATE/TIME: 12/22/242112 CC: [address] [address] Ph: [phone] DIAGNOSTIC IMAGING Diagnostic Imaging Report : [id number] Signed PATIENT: DUONG WOODS AACCT: [id number] UNIT: [id number] : 1970 LOC: ER ROOM / BED: / AGE / SEX: 54 / M ADM STATUS: REG ER SERVICE 11 ORDERING PHYSICIAN: CAYDEN SALAS DO PROCEDURE(s): UECIR - LT UPPER EXTREMITY W CONTRAS REASON: wound/abscess ORDER NUMBER(s): [id number], ACCESSION NUMBER(s): [id number] EXAM: CT LT UPPER EXTREMITY W CONTRAS INDICATION: wound/abscess EXAM DATE: 12/22/2024 09:16 PM COMPARISON: None TECHNIQUE: Multiple axial CT images of the left upper extremity were obtained using bone algorithm. Axial and coronal reformatting was done. Bone and soft tissue windows were reviewed. Study was done after administration 100 mL Omnipaque 300 with none wasted Radiation Dose Information: CT Dose: CTDI volume is 13.3 mGy. Dose-length product is 738.07 mGy*cm Findings: Left forearm is intact. The left elbow is unremarkable. No evidence for an abscess or fluid collection. Bones are unremarkable. IMPRESSION: 1. No evidence for abscess or fluid collection. 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 b.i.d. for 7 days Please follow up with the primary care physician in 1 week Also follow up in the discharge clinic in 1 week Discharge Statement: "Patient was advised to return to the ER or call 911 if any headaches, dizziness, shortness of breath, chest pain, abdominal pain, bleeding, fevers, or worsening of medical condition. Patient was counseled about treatment plan, medications, possible side effects, patientverbalized understanding. All questions were answered to the best of my ability. This discharge took greater then 30 minutes in planning, reviewing documentation, counseling the patient, and discussing with other team members." ASSESSMENT ASSESSMENT Assessment OCTAVIA POSADSA RESIDENT Dec 23, 2024 13:30
[2024-12-24] MEDS ORDERED: DOCU-94 PO (22:32)
[2024-12-24] MEDS ORDERED: PHENSUP38 PR (22:32)
== END 2024-12-23 13:51 | disposition home or self-care (01) | DRG 383 ==
LOC: ER 16:39 → OVERFLOW 22:11 → UNDODEPER 12-23 13:40
PROVIDERS: ADMIT Student in an Organized Health Care Education/Training Program
DX: L03.114 Cellulitis of left upper limb (principal); B87.0 Cutaneous myiasis; L02.424 Furuncle of left upper limb
CPT/HCPCS: 36415; 36600; 71045; 71275; 73201; 80048; 80053; 82805; 83036; 83605; 83880; 84443; 84484; 85025; 85379; 85652; 86141; 87040; 96365; 96366; G0378; J2543

== ENCOUNTER 2024-12-24 20:24 | Emergency (ER) | payer MEDICAID ==
[~2024-12-24] VITALS: Ht 175.3 cm; Wt 100.6 kg
[2024-12-24] MEDS ORDERED: DOCU-94 PO (22:32)
[2024-12-24] MEDS ORDERED: PHENSUP38 PR (22:32)
--- NOTE | 2024-12-24 22:33 | ED.PDOC ---
GI ASSESSMENT HPI Comments This patient is a pleasant but morbidly obese 54-year-old male who arrives the ED today for evaluation of a GI bleed event earlier today. Patient states he had a bowel movement and noticed some blood in his stool. Patient denies any history of hemorrhoids or similar symptoms. Patient denies any definitive rectal pain. Patient denies any fever nausea or vomiting. Patient mildly hypertensive on arrival. Chief Complaint: GI Bleed Time Seen by MD: 20:26 Primary Care Provider: unknown Reviewed Notes: Nurses Notes Allergies: Coded Allergies: NO KNOWN ALLERGIES (Unverified , 02/22/14) Home Meds Active Scripts Doxycycline Hyclate (Doxycycline Hyclate) 100 Mg Cap, 100 MG PO BID for 7 Days, #14 CAP Prov:SALLY TABOR MONISHA 12/18/24 Information Source: Patient Mode of Arrival: Ambulatory Timing: Hours Duration: Minutes Prehospital treatment: None Quality: None Vomitus: Bloody Severity: Mild Recent: None Recent Hx of: None Pain Location: None Associated sign and symptoms: Blood in Stool Past Medical History PAST MEDICAL HISTORY: Denies Surgical History: Denies all surgeries Family History Family History: Unknown Social History Smoker: Non-Smoker Alcohol: Denies ETOH Use Drugs: Denies Drug Use Lives In: Home Constitutional: denies: chills, diaphoresis, fatigue, fever, malaise, sweats, weakness, others EENTM: denies: blurred vision, double vision, ear bleeding, ear discharge, ear drainage, ear pain, ear ringing, eye pain, eye redness, hearing loss, mouth pain, mouth swelling, nasal discharge, nose bleeding, nose congestion, nose pain, photophobia, tearing, throat pain, throat swelling, voice changes, others Respiratory: denies: cough, hemoptysis, orthopnea, SOB at rest, shortness of breath, SOB with excertion, stridor, wheezing, others Cardiovascular: denies: chest pain, dizzy spells, diaphoresis, Dyspnea on exertion, edema, irregular heart beat, left arm pain, lightheadedness, palpitations, PND, syncope, others Gastrointestinal: reports: blood streaked bowels; denies: abdomen distended, abdominal pain, constipated, diarrhea, dysphagia, difficulty swallowing, hematemesis, melena, nausea, poor appetite, poor fluid intake, rectal bleeding, rectal pain, vomiting, others Genitourinary: denies: burning, dysuria, flank pain, frequency, hematuria, incontinence, penile discharge, penile sore, pain, testicle pain, testicle swelling, urgency, others Neurological: denies: dizziness, fainting, headache, left sided numbness, left sided weakness, numbness, paresthesia, pre-existing deficit, right sided numbness, right sided weakness, seizure, speech problems, tingling, tremors, weakness, others Musculoskeletal: denies: back pain, gout, joint pain, joint swelling, muscle pain, muscle stiffness, neck pain, others Integumetry: denies: bruises, change in color, change in hair/nails, dryness, laceration, lesions, lumps, rash, wounds, others Allergic/Immunocompromised: denies: Difficulty Healing, Frequent Infections, Hives, Itching, others Hematologic/Lymphatic: denies: anemia, blood clots, easy bleeding, easy bruising, swollen glands, others Endocrine: denies: excessive hunger, excessive sweating, excessive thirst, excessive urination, flushing, intolerance to cold, intolerance to heat, unexplained weight gain, unexplained weight loss, others Psychiatric: denies: anxiety, bipolar disorder, depression, hopeless, panic disorder, schizophrenia, sleepless, suicidal, others Physical Exam General Appearance: No Apparent Distress (Patient was in no distress at time of evaluation.), Normal HEENT: Normal ENT Inspection, Pharynx Normal, TMs Normal Neck: Full Range of Motion, Non-Tender, Normal, Normal Inspection Respiratory: Chest Non-Tender, Lungs Clear, No Accessory Muscle Use, No Respiratory Distress, Normal Breath Sounds Cardiovascular: No Edema, No JVD, No Murmur, No Gallop, Normal Peripheral Pulses, Regular Rate/Rhythm Breast Exam: Deferred Gastrointestinal: No Organomegaly, Non Tender, No Pulsatile Mass, Normal Bowel Sounds, Soft Genitalia: Deferred Pelvic: Deferred Rectal: Deferred Extremities: No calf tenderness, Normal capillary refill, Normal inspection, Normal range of motion, Non-tender, No pedal edema Neurologic: Alert, spa host II-XII nml as Tested, No Motor Deficits, Normal Affect, Normal Mood, No Sensory Deficits Cerebellar Function: Normal Reflexes: Normal Skin: Dry, Normal Color, Warm Lymphatic: No Adenopathy Was a procedure done? Was a procedure done?: No GI differential Dx Differential Diagnosis: Other ( Hemorrhoids) X-Ray, Labs, Meds, VS Vital Signs Date Time Temp Pulse Resp B/P (MAP) Pulse Ox O2 Delivery O2 Flow Rate FiO2 12/24/24 20:39 97.5 68 16 151/91 (111) 96 97.5 X-Ray, Labs, Meds, VS Comment Spent time discussing the patient's concerns with him. Advised cessation that due to an 1st time of event and without any significant rectal pain concerns, I believe the patient is suffering from a hemorrhoid issue. Advised patient utilize medication as directed and additionally, I will send the patient home with some Colace to be utilized for the next week or two to maintain soft stool. Time of 1ST Reevaluation: 22:30 Reevaluation 1ST: Unchanged Consultation: PCP Patient Education/Counseling: Diagnosis, Treatment Family Education/Counseling: Diagnosis, Treatment Departure 1 Departure Time of Disposition: 22:30 Impression: Primary Impression: Hemorrhoids Disposition: HOME / SELF CARE / HOMELESS Condition: Stable Additional Instructions: Advised patient utilize Colace in the next few weeks and utilize the rectal suppositories for the next several days. If symptoms continue, patient will need to follow up with the primary care provider for possible proctology referral and evaluation. e-Prescriptions Phenylephrine-Shark Liver Oil- (Hemorrhoidal Suppositorie 0.25-3-85.5 %) 1 Sup Sup 1 SUP NH BIDPRN PRN, #30 SUPP Prov: JORDEN INGRAM PAC 12/24/24 Docusate Sodium (Colace) 100 Mg Cap 1 CAP PO BID for 10 Days, #30 CAP Prov: JORDEN INGRAM PAC 12/24/24 Discharged With: Self, Friend Critical Care Note Critical Care Time?: No Stability Stability form required: No Heart Score Heart Score: Heart Score Response (Comments) Value History N/A 0 EKG N/A 0 Age N/A 0 Risk Factors N/A 0 Troponin N/A 0 Total 0 JORDEN INGRAM PAC Dec 24, 2024 22:32
[2024-12-25 01:05] VITALS: BP 122/77; PULSE 56; RESP 17; TEMP 98; O2SAT 95
== END 2024-12-25 01:05 | disposition home or self-care (01) ==
LOC: ER 20:30
DX: K64.9 Unspecified hemorrhoids (principal); E66.01 Morbid (severe) obesity due to excess calories

== ENCOUNTER 2025-07-02 06:43 | Emergency (ER) | payer MEDICAID, OTHER ==
[~2025-07-02] VITALS: Ht 175.3 cm; Wt 92.0 kg
[~2025-07-02 06:43] MED LIST changes: +DOCU-94 PO; -DOXY100C4 PO; +PHENSUP38 PR
--- NOTE | 2025-07-02 07:54 | ED.PDOC ---
SOB-HPI HPI Comments A 55 YEAR OLD MALE PRESENTS TO THE ED WITH COMPLAINT OF COUGH, WHEEZING, AND RIB PAIN. PATIENT STATES THAT HE HAS BEEN EXPERIENCING A COUGH AND CONGESTION FOR THE PAST 4 MONTHS AND WENT TO AN URGENT CARE YESTERDAY WHERE HE WAS DIAGNOSED WITH INFLUENZA B AND PRESCRIBED TAMIFLU. PATIENT REPORTS THAT AFTER TAKING 1 DOSE OF THIS MEDICATION HE BEGAN TO EXPERIENCE WHEEZING AND LEFT RIB PAIN WHEN COUGHING. PATIENT DENIES FEVER, CHILLS, CHEST PAIN, ABDOMINAL PAIN, NAUSEA, VOMITING, HEADACHE, OR OTHER COMPLAINTS. NO OTHER SYMPTOMS OR MODIFYING FACTORS AT THIS TIME. PATIENT IS ALERT, ORIENTED X 4, AND HAS STEADY GAIT. Chief Complaint: Shortness of Breath Time Seen by MD: 06:54 Primary Care Provider: unknown Reviewed notes: Nurses Notes, Medications, Allergies Information Source: Patient Mode of Arrival: Ambulatory Severity: Moderate Timing: Months Duration: Since onset Context: Spontaneous Onset PE Risk Factors: None History of: Recent URI Prehospital treatment: None Modifying Factors: Nothing Associated Signs and Symptoms: Wheeze, Cough, Nasal Congestion If cough with SOB: Productive Past Medical History PAST MEDICAL HISTORY: Denies Surgical History: Denies all surgeries Family History Family History: Reviewed,noncontributory to illness Social History Smoker: Non-Smoker Alcohol: Denies ETOH Use Drugs: Denies Drug Use Lives In: Home Constitutional: denies: chills, diaphoresis, fatigue, fever, malaise, sweats, weakness, others EENTM: reports: nose congestion; denies: blurred vision, double vision, ear bleeding, ear discharge, ear drainage, ear pain, ear ringing, eye pain, eye redness, hearing loss, mouth pain, mouth swelling, nasal discharge, nose bleeding, nose pain, photophobia, tearing, throat pain, throat swelling, voice changes, others Respiratory: reports: cough, shortness of breath, wheezing; denies: hemoptysis, orthopnea, SOB at rest, SOB with excertion, stridor, others Cardiovascular: denies: chest pain, dizzy spells, diaphoresis, Dyspnea on exertion, edema, irregular heart beat, left arm pain, lightheadedness, palpitations, PND, syncope, others Gastrointestinal: denies: abdomen distended, abdominal pain, blood streaked bowels, constipated, diarrhea, dysphagia, difficulty swallowing, hematemesis, melena, nausea, poor appetite, poor fluid intake, rectal bleeding, rectal pain, vomiting, others Genitourinary: denies: burning, dysuria, flank pain, frequency, hematuria, incontinence, penile discharge, penile sore, pain, testicle pain, testicle swelling, urgency, others Neurological: denies: dizziness, fainting, headache, left sided numbness, left sided weakness, numbness, paresthesia, pre-existing deficit, right sided numbness, right sided weakness, seizure, speech problems, tingling, tremors, weakness, others Musculoskeletal: reports: others (LEFT RIB PAIN); denies: back pain, gout, clarice int pain, joint swelling, muscle pain, muscle stiffness, neck pain Integumetry: denies: bruises, change in color, change in hair/nails, dryness, laceration, lesions, lumps, rash, wounds, others Allergic/Immunocompromised: denies: Difficulty Healing, Frequent Infections, Hives, Itching, others Hematologic/Lymphatic: denies: anemia, blood clots, easy bleeding, easy bruising, swollen glands, others Endocrine: denies: excessive hunger, excessive sweating, excessive thirst, excessive urination, flushing, intolerance to cold, intolerance to heat, unexp lained weight gain, unexplained weight loss, others Psychiatric: denies: anxiety, bipolar disorder, depression, hopeless, panic disorder, schizophrenia, sleepless, suicidal, others All Other Systems: Reviewed and Negative Physical Exam General Appearance: Mild Distress, Normal, Other (ANXIOUS ) HEENT: Normal ENT Inspection, PERRL/EOMI, Pharynx Normal, TMs Normal Neck: Full Range of Motion, Non-Tender, Normal, Normal Inspection Respiratory: Decreased Breath Sounds, Expiration, No Accessory Muscle Use, No Respiratory Distress, Rhonchi, Wheezing, Other (TENDERNESS ON LEFT RIBS. ) Cardiovascular: No Edema, No JVD, No Murmur, No Gallop, Normal Peripheral Pulses, Regular Rate/Rhythm Breast Exam: Deferred Gastrointestinal: No Organomegaly, Non Tender, No Pulsatile Mass, Normal Bowel Sounds, Soft Genitalia: Deferred Pelvic: Deferred Rectal: Deferred Extremities: No calf tenderness, Normal capillary refill, Normal inspection, Normal range of motion, Non-tender, No pedal edema Musculoskeletal : Apperance: Normal Neurologic: Alert, informatics nurse II-XII nml as Tested, No Motor Deficits, Normal Affect, Normal Mood, No Sensory Deficits Cerebellar Function: Normal Reflexes: Normal Skin: Dry, Normal Color, Warm Peripheral Pulses: 2+ carotid (R), 2+ carotid (L) Lymphatic: No Adenopathy EKG EKG : Pulse Rate (adult): 85 [place]: Normal Cardiac Rhythm: NSR Block: None Hypertrophy: None ST: Normal Was a procedure done? Was a procedure done?: No Differential Dx Differential Diagnosis: Bronchitis, Pneumonia, Sinusitis, Allergic Rhinitis, Otitis Media, Pharyngitis, URI X-Ray, Labs, Meds, VS Vital Signs Date Time Temp Pulse Resp B/P (MAP) Pulse Ox O2 Delivery O2 Flow Rate FiO2 07/02/25 09:41 98.8 84 20 123/74 (90) 94 98.8 07/02/25 09:41 84 20 94 Room Air 07/02/25 09:24 16 95 Room Air* 0 21 07/02/25 08:45 16 97 Nasal Cannula* 2 28 07/02/25 08:10 16 95 Room Air* 0 21 07/02/25 08:06 85 07/02/25 08:04 85 07/02/25 06:43 99.3 89 18 147/91 93 99.3 Current Medications Medications (Trade) Dose Ordered Sig/Jeremy Route Start Time Stop Time Status Last Admin Albuterol (Ventolin Medneb) 5 mg ONCE ONCE NEB 07/02/25 08:00 07/02/25 08:01 DC 07/02/25 08:09 Ipratropium [place] (Atrovent Medneb) 1 mg ONCE ONCE NEB 07/02/25 08:00 07/02/25 08:01 DC 07/02/25 08:09 Methylprednisolone Sodium Succinate (Solu Medrol) 125 mg ONCE ONCE IM 07/02/25 08:00 07/02/25 08:01 DC 07/02/25 08:29 Promethazine HCl/ Codeine (Phenergan W/ Codeine) 5 ml ONCE ONCE PO 07/02/25 09:00 07/02/25 09:01 DC 07/02/25 09:04 Albuterol (Ventolin Medneb) 5 mg ONCE ONCE NEB 07/02/25 09:00 07/02/25 09:01 DC 07/02/25 09:24 Ipratropium [place] (Atrovent Medneb) 1 mg ONCE ONCE NEB 07/02/25 09:00 07/02/25 09:01 DC 07/02/25 09:24 XY CHEST TWO VIEWS ROUTINE CLINICAL HISTORY: COUGH AND SOB COMPARISON: CT CT ANGIO CHEST CONTRAST on DOS: 12/22/24, XY CHEST PORTABLE on DOS: 12/22/24 TECHNIQUE: Frontal and lateral view of the chest was obtained FINDINGS: Lines and Tubes: None Lungs: No focal consolidation. Pleura: No effusion. No pneumothorax. Cardiomediastinal contours: Unremarkable Bones: No acute osseous abnormality. IMPRESSION: 1. No acute cardiopulmonary disease. ATED BY: GABE MENDOZA MD DICTATED DATE/TIME: 07/02/25813 SIGNED BY: GABE MENDOZA MD SIGNED DATE/TIME: 07/02/25813 CC: X-Ray, Labs, Meds, VS Comment EXTERNAL MEDICAL RECORDS REVIEWED: [NONE] INDEPENDENT HISTORIANS: [NONE] SOCIAL DETERMINANTS OF HEALTH: [NONE] LABS ORDERED: NONE REVIEWED AND INTERPRETED RESULTS: NONE IMAGING ORDERED: XR CHEST TREATMENTS ORDERED: DUONEB 3 MG INHL X2, SOLU-MEDROL 125 MG IM, PHENERGAN W/ CODEINE 5ML PO. PT STATES HE FEELS BETTER AFTER TREATMENT. PROCEDURES PERFORMED: NONE CRITICAL CARE TIME: NONE I HAVE DISCUSSED THE PATIENT WITH THE ATTENDING PHYSICIAN DR. DAVIS AND HE AGREES WITH THE PATIENT'S PLAN OF CARE AND DISPOSITION. BASED ON HISTORY OF PRESENT ILLNESS, AND PHYSICAL EXAM, PATIENT WILL BE DISCHARGED HOME. DISCUSSED PLAN FOR DISCHARGE HOME WITH RX [AZITHROMYCIN, ALBUTEROL INHALER, PHENERGAN DM, AND PREDNISONE]. MEDICATION WARNINGS GIVEN. SHARED DECISION MAKING: DISCUSSED WITH PATIENT THAT THEIR WORKUP WAS NORMAL. PATIENT INSTRUCTED TO FOLLOW UP WITH PRIMARY CARE PROVIDER IN 1-2 DAYS FOR RE- EVALUATION OF SYMPTOMS. PATIENT VERBALIZES UNDERSTANDING TO RETURN TO ED FOR NEW OR WORSENING SYMPTOMS OR IF FOLLOW UP WITH PCP CANNOT BE OBTAINED. PATIENT FEELS COMFORTABLE GOING HOME AT THIS TIME. ALL QUESTIONS ADDRESSED AT TIME OF DISCHARGE. Images Reviewed?: Images reviewed and evaluated by me Time of 1ST Reevaluation: 09:42 Reevaluation 1ST: Improved Time of 2ND Reevaluation: 10:18 Reevaluation 2ND: Improved Patient Education/Counseling: Diagnosis, Treatment, Need For Follow Up Family Education/Counseling: Diagnosis, Treatment, Need For Follow Up Medical Screening: No EMC Exist At This Time SEPSIS Sepsis Screen Date sepsis recognized/suspect: Jul 02, 2025 Time Sepsis recognized/suspect: 0643 Recent Procedure: No On Antibiotic Therapy: No Respiratory Rate >20: No Heart Rate >90: No Temp<36 C (96.8 F) or >38.3 C: No SBP <90 or MAP <65 mmHG: No New Acute Mental Status Change: No Is the patient on CPAP, BIPAP,: No Physician Orders Chest Two Views Routine (07/02/25 07:45) Electrocardigram (07/02/25 07:52) Vital Signs Date Time Temp Pulse Resp B/P (MAP) Pulse Ox O2 Delivery O2 Flow Rate FiO2 07/02/25 09:41 98.8 84 20 123/74 (90) 94 98.8 07/02/25 09:41 84 20 94 Room Air 07/02/25 09:24 16 95 Room Air* 0 21 07/02/25 08:45 16 97 Nasal Cannula* 2 28 07/02/25 08:10 16 95 Room Air* 0 21 07/02/25 08:06 85 07/02/25 08:04 85 07/02/25 06:43 99.3 89 18 147/91 93 99.3 Medications Medications Dose Ordered Sig/Jeremy Route Start Time Stop Time Status Last Admin Dose Admin Albuterol 5 mg ONCE ONCE NEB 07/02/25 08:00 07/02/25 08:01 DC 07/02/25 08:09 Albuterol 5 mg ONCE ONCE NEB 07/02/25 09:00 07/02/25 09:01 DC 07/02/25 09:24 Ipratropium [place] 1 mg ONCE ONCE NEB 07/02/25 08:00 07/02/25 08:01 DC 07/02/25 08:09 Ipratropium [place] 1 mg ONCE ONCE NEB 07/02/25 09:00 07/02/25 09:01 DC 07/02/25 09:24 Methylprednisolone Sodium Succinate 125 mg ONCE ONCE IM 07/02/25 08:00 07/02/25 08:01 DC 07/02/25 08:29 Promethazine HCl/ Codeine 5 ml ONCE ONCE PO 07/02/25 09:00 07/02/25 09:01 DC 07/02/25 09:04 Departure 1 Departure Time of Disposition: 10:18 Impression: Primary Impression: Acute bronchitis with bronchospasm Disposition: HOME / SELF CARE / HOMELESS Condition: Stable Additional Instructions: FOLLOW-UP WITH PCP IN 1 TO 2 DAYS. TAKE MEDICATIONS PRESCRIBED. RETURN TO ED FOR ANY NEW OR WORSENING SYMPTOMS. e-Prescriptions Prednisone (Prednisone) 20 Mg Tab 60 MG PO DAILY, #15 TAB Prov: RADHA FRASER 07/02/25 Promethazine-Dm (Promethazine Dm 6.25-15 mg/5Ml) 1 Shanon Shanon 5 ML PO TID, #180 ML Prov: RADHA FRASER 07/02/25 Albuterol Sulfate (Albuterol Sulfate Hfa) 108 Mcg/Act Aer 108 MCG IN TID, #120 AER Prov: RADHA FRASER 07/02/25 Azithromycin (Azithromycin) 500 Mg Tab 1 TAB PO DAILY, #5 TAB Prov: RADHA FRASER 07/02/25 Discharged With: Self, Spouse Critical Care Note Critical Care Time?: No Stability Stability form required: No Heart Score Heart Score: Heart Score Response (Comments) Value History N/A 0 EKG N/A 0 Age N/A 0 Risk Factors N/A 0 Troponin N/A 0 Total 0 I personally scribed for RADHA FRASER PA ([email or web address]) on 07/02/25 at 07:54. Electronically submitted by Angel Chavez ([employer]). I personally scribed for ANURAG FRASERA PA ([email or web address]) on 07/02/25 at 08:06. Electronically submitted by Angel Chavez ([employer]). I personally scribed for ANURAG FRASERA PA ([email or web address]) on 07/02/25 at 08:23. Electronically submitted by Angel Chavez ([employer]). I personally scribed for ANURAG FRASERA PA ([email or web address]) on 07/02/25 at 08:58. Electronically submitted by Angel Chavez ([employer]). I personally scribed for ANURAG FRASERA PA ([email or web address]) on 07/02/25 at 09:01. Electronically submitted by Angel Chavez ([employer]). RADHA FRASER Jul 02, 2025 07:54
[2025-07-02] MEDS: IPRATROPIUM BROM 0.5 MG/2.5ML INH SOL NEB ONE ×2 (08:09→09:24)
[2025-07-02] MEDS: ALBUTEROL SULF 2.5 MG/0.5ML(0.5%) NEB SOLN NEB ONE ×2 (08:09→09:24)
--- NOTE | 2025-07-02 08:16 | DVH ---
XY CHEST TWO VIEWS ROUTINE CLINICAL HISTORY: COUGH AND SOB COMPARISON: CT CT ANGIO CHEST CONTRAST on DOS: 12/22/24, XY CHEST PORTABLE on DOS: 12/22/24 TECHNIQUE: Frontal and lateral view of the chest was obtained FINDINGS: Lines and Tubes: None Lungs: No focal consolidation. Pleura: No effusion. No pneumothorax. Cardiomediastinal contours: Unremarkable Bones: No acute osseous abnormality. IMPRESSION: 1. No acute cardiopulmonary disease.
[2025-07-02] MEDS: methylPREDNISolone SOD SUCC 125 MG/2 ML VL IM ONE (08:29)
[2025-07-02] MEDS: PROMETHAZINE W/CODEINE 5 ML ORAL SYRUP PO ONE (09:04)
[2025-07-02] MEDS ORDERED: ALBU108A5 IN (09:37)
[2025-07-02] MEDS ORDERED: PRED20TA2 PO (09:37)
[2025-07-02] MEDS ORDERED: AZIT500T66 PO (09:37)
[2025-07-02] MEDS ORDERED: PROM1SOL4 PO (09:37)
[2025-07-02 09:41] VITALS: BP 123/74; PULSE 84; RESP 20; TEMP 98.8
[2025-07-02 10:21] VITALS: O2SAT 96
--- NOTE | 2025-07-05 07:19 | ECG ---
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
== END 2025-07-02 10:22 | disposition home or self-care (01) ==
LOC: ER 06:43
DX: J20.9 Acute bronchitis, unspecified (principal)
CPT/HCPCS: 71046; 93005; 94640; 96372; 99285; J2919

== ENCOUNTER 2025-07-20 18:36 | Inpatient (IN) | payer MEDICAID, OTHER ==
[~2025-07-20] VITALS: Ht 175.3 cm; Wt 89.8 kg
[~2025-07-20 18:36] MED LIST changes: +ALBU108A5 IN; +AZIT500T66 PO; +PRED20TA2 PO; +PROM1SOL4 PO
--- NOTE | 2025-07-20 20:29 | ED.PDOC ---
History of Present Illness HPI Comments 55-year-old male who presents to the emergency department with shortness of breath ongoing for the past 3 months but worsened yesterday. Patient was seen at this facility July 02 and diagnosed with bronchitis. He was prescribed an inhaler at that time however he has since ran out of the inhaler. Patient does not have a primary care provider at this time. 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 He is reporting associated chest pain, cough, shortness of breath and low back pain. REVIEW OF SYSTEMS: General: No fever, no chills, or fatigue HEENT: No sore throat, no earache, no congestion, no neck pain. Cardiac: Positive chest pain. No palpitations. Lungs: Positive shortness of breath, positive cough. GI: No nausea, no vomiting, no diarrhea, no constipation, no abdominal pain : No dysuria, frequency, or urgency. No hematuria. Musculoskeletal: No joint pain , no joint swelling, no extremity edema. Positive low back pain Skin: No rash, no itching. Neuro: No headache, no dizziness, no weakness (And as sated in HPI) PHYSICAL EXAM: General: Awake, alert and oriented. No acute distress. Skin: Skin in warm, dry and intact. Appropriate color for ethnicity. HEENT: The head is normocephalic and atraumatic. Conjunctivae are clear without exudates or hemorrhage. Sclera is non-icteric. Eyelids are normal in appearance without swelling or lesions. Oral mucosa is pink and moist. Nasal cannula in place Neck: The neck is supple with normal range of motion. No JVD. Cardiac: Heart rate and rhythm are normal. No murmurs, gallops, or rubs are auscultated. Respiratory: No signs of respiratory distress. Repetitive dry cough noted. Positive bilateral wheezes. Abdominal: Abdomen is soft, non-tender without distention, guarding or rigidity. Bowel sounds are present and normoactive in all four quadrants. Extremities: Upper and lower extremities are atraumatic in appearance without deformity or edema. Neurological: The patient is awake, alert and oriented to person, place, and time with normal speech. Speech is clear. There is no facial asymmetry. Psychiatric: Appropriate mood and affect. Good judgement and insight. Chief Complaint: Shortness of Breath Time Seen by MD: 19:34 Primary Care Provider: unknown Allergies: Coded Allergies: NO KNOWN ALLERGIES (Unverified , 02/22/14) Home Meds Active Scripts Prednisone (Prednisone) 20 Mg Tab, 60 MG PO DAILY, #15 TAB Prov:RADHA FRASER 07/02/25 Promethazine-Dm (Promethazine Dm 6.25-15 mg/5Ml) 1 Shanon Shanon, 5 ML PO TID, #180 ML Prov:RADHA FRASER 07/02/25 Albuterol Sulfate (Albuterol Sulfate Hfa) 108 Mcg/Act Aer, 108 MCG IN TID, #120 AER Prov:RADHA FRASER 07/02/25 Azithromycin (Azithromycin) 500 Mg Tab, 1 TAB PO DAILY, #5 TAB Prov:RADHA FRASER 07/02/25 Phenylephrine-Shark Liver Oil- (Hemorrhoidal Suppositorie 0.25-3-85.5 %) 1 Sup Sup, 1 SUP [place] BIDPRN PRN, #30 SUPP Prov:JORDEN INGRAM PAC 12/24/24 Docusate Sodium (Colace) 100 Mg Cap, 1 CAP PO BID for 10 Days, #30 CAP Prov:JORDEN INGRAM PAC 12/24/24 Mode of Arrival: Ambulatory Past Medical History PAST MEDICAL HISTORY: Denies Surgical History: Denies all surgeries Family History Family History: Reviewed,noncontributory to illness Social History Smoker: Non-Smoker Alcohol: Denies ETOH Use Drugs: Denies Drug Use Lives In: Home Was a procedure done? Was a procedure done?: No Differential Dx Considerations may include: Differential diagnoses considered includebut arenot limited to acute Bronchitis, Asthma, COPD, Pneumothorax, PE, CHF, Pulmonary HTN, Anemia, CO Poisoning, Methemoglobinemia, Hyperventilation, Metabolic Acidosis, Pulmonary Edema, Pneumonia, ACS, Pericardial Tamponade, Anxiety, other X-Ray, Labs, Meds, VS Vital Signs Date Time Temp Pulse Resp B/P (MAP) Pulse Ox O2 Delivery O2 Flow Rate FiO2 07/20/25 20:36 20 99 Nasal Cannula* 3 32 07/20/25 20:35 80 20 110/80 (90) 99 07/20/25 20:32 20 96 Nasal Cannula* 3 32 07/20/25 18:39 98.3 89 24 143/96 94 98.3 Lab Test 11/11/25 20:56 07/20/25 20:30 07/20/25 20:28 Range/Units Influenza Type A Antigen Negative Negative Influenza Type B Antigen Negative Negative SARS-CoV-2 Antigen (Rapid) Negative NEGATIVE White Blood Count 6.3 4.4-10.8 10^3/uL Red Blood Count 5.13 4.5-5.90 10^6/uL Hemoglobin 14.7 13.5-17.5 g/dL Hematocrit 43.5 41.0-53.0 % Mean Corpuscular Volume 84.8 80.0-100.0 fL Mean Corpuscular Hemoglobin 28.7 28.0-32.0 pg Mean Corpuscular Hemoglobin Concent 33.8 32.0-36.0 g/dL Red Cell Distribution Width 14.4 H 11.8-14.3 % Platelet Count 218 140-450 10^3/uL Mean Platelet Volume 7.7 6.9-10.8 fL Neutrophils (%) (Auto) 65.0 37.0-80.0 % Lymphocytes (%) (Auto) 22.1 10.0-50.0 % Monocytes (%) (Auto) 5.6 0.0-12.0 % Eosinophils (%) (Auto) 7.0 0.0-7.0 % Basophils (%) (Auto) 0.3 0.0-2.0 % Neutrophils # (Auto) 4.1 1.6-8.6 10 ^3/uL Lymphocytes # (Auto) 1.4 0.4-5.4 10 ^3/uL Monocytes # (Auto) 0.4 0-1.3 10 ^3/uL Eosinophils # (Auto) 0.4 0-0.8 10 ^3/uL Basophils # (Auto) 0 0-0.2 10 ^3/uL Nucleated Red Blood Cells 0.1 % Sodium Level 144 136-145 mmol/L Potassium Level 4.1 3.5-5.1 mmol/L Chloride Level 105 98-107 mmol/L Carbon Dioxide Level 27 20-31 mmol/L Anion Gap 12 5-15 Blood Urea Nitrogen 8 L 9-23 mg/dL Creatinine 1.06 0.700-1.30 mg/dL Glomerular Filtration Rate Calc 83 >90 mL/min BUN/Creatinine Ratio 7.5 L 10.0-20.0 Serum Glucose 103 74-106 mg/dL Lactic Acid Level 0.9 0.4-2.0 mmol/L Calcium Level 9.6 8.7-10.4 mg/dL Total Bilirubin 0.8 0.2-1.0 mg/dL Aspartate Amino Transferase (AST) 27 13-40 U/L Alanine Aminotransferase (ALT) 30 7-40 U/L Alkaline Phosphatase 82 46-116 U/L Troponin I High Sensitivity 4 </=54 ng/L B-Type Natriuretic Peptide 24.80 0-100 pg/mL Total Protein 7.9 5.7-8.2 g/dL Albumin 4.7 3.2-4.8 g/dL Blood Gas Specimen Type Arterial Blood Gas Sample Site Left radial Blood Gas Patient Temperature 37.0 Arterial Blood Date Drawn [id number] Arterial Blood pH 7.400 7.350-7.450 Arterial Blood Partial Pressure CO2 36.0 35.0-48.0 mmHg Arterial Blood Partial Pressure O2 79.2 L 83.0-108.0 mmHg Arterial Blood HCO3 21.8 21.0-28.0 mmol/L Arterial Blood Oxygen Saturation 94.9 94.0-98.0 % Arterial Blood Base Excess -2.4 L -2.0-3.0 mmol/L Arterial Blood Oxyhemoglobin 93.6 L 94.0-98.0 % Arterial Blood Carboxyhemoglobin 1.0 0.5-1.5 % Arterial Blood Methemoglobin 0.4 0.0-1.5 % Moisés Test Modified Blood Gas Total Hemoglobin 14.80 13.5-17.5 g/dL Blood Gas Liter Flow 3.00 Blood Gas Modality Nasal cannula FiO2 % 32.0 Current Medications Medications (Trade) Dose Ordered Sig/Jeremy Route Start Time Stop Time Status Last Admin Albuterol (Ventolin Medneb) 2.5 mg ONCE ONCE NEB 07/20/25 20:15 07/20/25 20:16 DC 07/20/25 20:32 Ipratropium [place] (Atrovent Medneb) 0.5 mg ONCE ONCE NEB 07/20/25 20:15 07/20/25 20:16 DC 07/20/25 20:32 Dexamethasone Sodium Phosphate (Decadron Injection) 10 mg ONCE ONCE IM 07/20/25 20:15 07/20/25 20:16 DC 07/20/25 20:42 Time of 1ST Reevaluation: 20:27 Reevaluation 1ST: Unchanged Patient Education/Counseling: Other (Need for admission) Family Education/Counseling: No Family Present SEPSIS Sepsis Screen Date sepsis recognized/suspect: Jul 20, 2025 Time Sepsis recognized/suspect: 1841 Recent Procedure: No On Antibiotic Therapy: No Respiratory Rate >20: Yes Heart Rate >90: No Temp<36 C (96.8 F) or >38.3 C: No SBP <90 or MAP <65 mmHG: No New Acute Mental Status Change: No Is the patient on CPAP, BIPAP,: No Physician Orders Abg W/ Co-Ox (07/20/25 20:12) Chest Xray 1 View (07/20/25 20:12) Electrocardigram (07/20/25 20:12) Vital Signs Date Time Temp Pulse Resp B/P (MAP) Pulse Ox O2 Delivery O2 Flow Rate FiO2 07/20/25 20:36 20 99 Nasal Cannula* 3 32 07/20/25 20:35 80 20 110/80 (90) 99 07/20/25 20:32 20 96 Nasal Cannula* 3 32 07/20/25 18:39 98.3 89 24 143/96 94 98.3 Laboratory Tests Test 07/20/25 20:30 Lactic Acid Level 0.9 mmol/L (0.4-2.0) White Blood Count 6.3 10^3/uL (4.4-10.8) Medications Medications Dose Ordered Sig/Jeremy Route Start Time Stop Time Status Last Admin Dose Admin Albuterol 2.5 mg ONCE ONCE NEB 07/20/25 20:15 07/20/25 20:16 DC 07/20/25 20:32 Dexamethasone Sodium Phosphate 10 mg ONCE ONCE IM 07/20/25 20:15 07/20/25 20:16 DC 07/20/25 20:42 Ipratropium [place] 0.5 mg ONCE ONCE NEB 07/20/25 20:15 07/20/25 20:16 DC 07/20/25 20:32 Departure 1 Departure Time of Disposition: 22:10 Impression: Primary Impression: Hypoxemia Additional Impression: Asthma exacerbation Disposition: ADMITTED INPATIENT Condition: Stable Comments MDM: 55-year-old male who presents with bronchospasm, shortness of breath, hypoxemia Patient is stabilized in the ED. Patient admitted to hospitalist service for further treatment, evaluation and monitoring. Extensive evaluation was performed in attempt to identify or rule out: (See differential diagnosis section) The following tests were ordered, and results were reviewed by me and discussed with patient: (See diagnostic results section) The following test were independently interpreted by me: Chest x-ray-no acute disease I reviewed and agreed with the following test results read by other providers: Chest x-ray I reviewed the following notes from the pt's past medical encounters: Previous encounter for bronchitis 07/02 Additional information was gathered from interviewing the following independent historians: N/A Discussion of management or test interpretation with external physician/other qualified health day care home provider: N/A Decision regarding hospitalization or escalation of hospital level of care: Risk and benefits of admission for further treatment of patient's condition was considered. Due to patient's current clinical condition, high risk of decline and poor outcome if discharged and need for further inpatient management and monitoring, patient will be admitted to the hospital. Drug therapy requiring intensive monitoring for toxicity: N/A Critical Care Note Critical Care Time?: No Stability Stability form required: No Heart Score Heart Score: Heart Score Response (Comments) Value History N/A 0 EKG N/A 0 Age N/A 0 Risk Factors N/A 0 Troponin N/A 0 Total 0 ROSEY GRAJEDA MD Jul 20, 2025 20:29
[2025-07-20] MEDS: ALBUTEROL SULF 2.5 MG/0.5ML(0.5%) NEB SOLN NEB ONE (20:32)
[2025-07-20] MEDS: IPRATROPIUM BROM 0.5 MG/2.5ML INH SOL NEB ONE (20:32)
--- NOTE | 2025-07-20 20:34 | DVH ---
CLINICAL HISTORY: Shortness of breath TECHNIQUE: Single view of the chest was obtained. COMPARISON: XY CHEST TWO VIEWS ROUTINE on DOS: 07/02/25, CT CT ANGIO CHEST CONTRAST on DOS: 12/22/24, XY CHEST PORTABLE on DOS: 12/22/24 FINDINGS: The heart size and pulmonary vasculature are normal. The lungs are clear. IMPRESSION: NO ACUTE CARDIOPULMONARY PROCESS.
[2025-07-20 20:42] LABS: Base Excess -2.4 mmol/L (-2.0-3.0)
[2025-07-20 20:48] LABS: Hematocrit 43.5 % (41.0-53.0); Hemoglobin 14.7 g/dL (13.5-17.5); Mean Corpuscular Hemoglobin 28.7 pg (28.0-32.0); Mean Corpuscular Volume 84.8 fL (80.0-100.0); Nucleated Red Blood Cells % 0.1 %
[2025-07-20 21:02] LABS: Alanine Aminotransferase 30 U/L (7-40); Alkaline Phosphatase 82 U/L (46-116); Anion Gap 12 (5-15); BUN/Creatinine Ratio 7.5 (10.0-20.0); Calcium 9.6 mg/dL (8.7-10.4); Carbon Dioxide 27 mmol/L (20-31); Chloride 105 mmol/L (98-107); Glucose 103 mg/dL (74-106); Potassium 4.1 mmol/L (3.5-5.1); Sodium 144 mmol/L (136-145); Total Protein 7.9 g/dL (5.7-8.2)
[2025-07-20 21:03] LABS: Albumin 4.7 g/dL (3.2-4.8)
[2025-07-20 21:04] LABS: Bilirubin, Total 0.8 mg/dL (0.2-1.0)
[2025-07-20 21:23] LABS: Blood Urea Nitrogen 8 mg/dL (9-23)
[2025-07-20 22:08] LABS: COVID19 ANTIGEN SOFIA FIA NEGATIVE (NEGATIVE)
[2025-07-20 23:35] VITALS: RESP 16
[2025-07-20] MEDS: KETOROLAC TROMETH 30 MG/ML 1ML VIAL IM ONE (23:35)
[2025-07-20 23:44] VITALS: BP 121/73; PULSE 72; RESP 20; TEMP 97.9; O2SAT 97
[2025-07-20] MEDS ORDERED: ACETAMINOPHEN 325 MG TAB PO PRN (23:45)
[2025-07-20] MEDS ORDERED: ONDANSETRON HCL 4 MG/2 ML VIAL IV PRN (23:45)
[2025-07-21] VITALS (21 sets, daily range): BP systolic 104–143; BP diastolic 56–77; PULSE 55–89; RESP 16–22; TEMP 97.7–98.3; O2SAT 92–100
[2025-07-21] MEDS: IPRATROPIUM BROM 0.5 MG/2.5ML INH SOL NEB ONE (00:01)
[2025-07-21] MEDS: ALBUTEROL SULF 2.5 MG/0.5ML(0.5%) NEB SOLN NEB ONE (00:01)
--- NOTE | 2025-07-21 00:03 | DVHHPRES ---
History of Present Illness Resident Creating Document: JENIFFER MANZO RESIDENT History of Present Illness 55-year-old male with no significant past medical history has come to the ED with chief complaints of shortness of breath and cough for the past 2 days. Patient reports that he was here at this facility 2 weeks ago, due to similar complaints and was given albuterol inhalers, which he has run out of. He reports that he had increased sudden shortness of breath since yesterday morning which has worsened and is associated with yellow productive cough, mixed with white sputum. 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 He uses a simple mask and reports he has no other protective gear provided to him at work. He also reports of back pain which gets exacerbated on coughing, began today morning, after he drove for a long while. Patient denies any fever, chills, recent sick contacts, travel history, palpitations, chest pain. Vitals on admission were temp 98.3, HR 89, RR 24, BP 143/96 mmHg, SpO2 99% on 3 L of oxygen. Tropes were negative, BNP 24.8, ABG shows low oxygen levels and COVID and flu tests are negative. We are admitting the patient for further workup and management. PMH: None PSH: None Family history: Reviewed, noncontributory to the management of this case Social history: Patient denies any smoking, alcohol use or illicit drug abuse PCP: Patient does not have one Allergies: None Code status: Full code Review of Systems Constitutional: No: Fever, Chills, Sweats, Weakness, Malaise, Other Eyes: No: Pain, Vision change, Conjunctivae inflammation, Eyelid inflammation, Other, Redness ENT: No: Ear pain, Ear discharge, Nose pain, Nose discharge, Nose congestion, Mouth pain, Mouth swelling, Throat pain, Throat swelling, Other Respiratory: Cough, Shortness of breath; No: Dry, SOB with excertion, Wheezing, Hemoptysis, Pleuritic Pain, Sputum, Wheezing, Other Cardiovascular: No: Chest Pain, Palpitations, Orthopnea, Paroxysmal Noc. Dyspnea, Edema, Lt Headedness, Other Gastrointestinal: No: Nausea, Vomiting, Abdominal Pain, Diarrhea, Constipation, Melena, Hematochezia, Other Genitourinary: No Dysuria, No Frequency, No Incontinence, No Hematuria, No Retention, No Other Musculoskeletal: No: other, neck pain, shoulder pain, arm pain, back pain, hand pain, leg pain, foot pain Skin: No: Rash, Lesions, Jaundice, Bruising, Other Neurological: No: Weakness, Numbness, Incoordination, Change in speech, Confusion, Seizures, Other Allergies: Coded Allergies: NO KNOWN ALLERGIES (Unverified , 02/22/14) Medications Current Medications Medications Dose Ordered Sig/Jeremy Route Start Time Stop Time Status Last Admin Dose Admin Acetaminophen/ Hydrocodone Bitart 1 tab Q4HP PRN PO 07/20/25 23:45 Ondansetron HCl 4 mg Q4HP PRN IV 07/20/25 23:45 Acetaminophen 650 mg Q6HP PRN PO 07/20/25 23:45 Enoxaparin Sodium 40 mg DAILY SC 07/20/25 23:45 Ipratropium [place] 0.[address] [facility] 07/21/25 06:00 Albuterol 2[address] [facility] 07/21/25 06:00 Magnesium Sulfate/ Dextrose 100 ml @ 100 mls/hr Q1H IV 07/20/25 23:45 07/21/25 01:44 Methylprednisolone Sodium Succinate 40 mg BID IV 07/21/25 10:00 Azithromycin 250 ml @ 125 mls/hr DAILY IV 07/22/25 10:00 Exam Vital Signs Vital Signs Date Time Temp Pulse Resp B/P (MAP) Pulse Ox O2 Delivery O2 Flow Rate FiO2 07/20/25 23:44 97.9 72 20 121/73 97 3.0 32 97.9 07/20/25 23:35 Nasal Cannula* Exam General Appearance: Alert, Oriented X3, Cooperative, Not in acute distress HEENT: Atraumatic, Mucous membranes moist/pink, no erythema of pharynx, tonsils, patient on 3 L of oxygen via nasal cannula Respiratory: wheezing present in bilateral lung norman Cardiovascular: Regular rate, Normal S1, Normal S2, No murmurs Abdominal: Active bowel sounds, Soft, no distention, no tenderness Extremities: No edema, Normal pulses, No tenderness/swelling Skin: No Significant rash, except past surgical scars Neuro: Normal speech, sensorimotor deficits none Psych/Mental Status: Mental status NL, Mood NL Labs/Xrays Labs Test 07/20/25 20:56 07/20/25 20:30 07/20/25 20:28 Range/Units Influenza Type A Antigen Negative Negative Influenza Type B Antigen Negative Negative SARS-CoV-2 Antigen (Rapid) Negative NEGATIVE White Blood Count 6.3 4.4-10.8 10^3/uL Red Blood Count 5.13 4.5-5.90 10^6/uL Hemoglobin 14.7 13.5-17.5 g/dL Hematocrit 43.5 41.0-53.0 % Mean Corpuscular Volume 84.8 80.0-100.0 fL Mean Corpuscular Hemoglobin 28.7 28.0-32.0 pg Mean Corpuscular Hemoglobin Concent 33.8 32.0-36.0 g/dL Red Cell Distribution Width 14.4 H 11.8-14.3 % Platelet Count 218 140-450 10^3/uL Mean Platelet Volume 7.7 6.9-10.8 fL Neutrophils (%) (Auto) 65.0 37.0-80.0 % Lymphocytes (%) (Auto) 22.1 10.0-50.0 % Monocytes (%) (Auto) 5.6 0.0-12.0 % Eosinophils (%) (Auto) 7.0 0.0-7.0 % Basophils (%) (Auto) 0.3 0.0-2.0 % Neutrophils # (Auto) 4.1 1.6-8.6 10 ^3/uL Lymphocytes # (Auto) 1.4 0.4-5.4 10 ^3/uL Monocytes # (Auto) 0.4 0-1.3 10 ^3/uL Eosinophils # (Auto) 0.4 0-0.8 10 ^3/uL Basophils # (Auto) 0 0-0.2 10 ^3/uL Nucleated Red Blood Cells 0.1 % Sodium Level 144 136-145 mmol/L Potassium Level 4.1 3.5-5.1 mmol/L Chloride Level 105 98-107 mmol/L Carbon Dioxide Level 27 20-31 mmol/L Anion Gap 12 5-15 Blood Urea Nitrogen 8 L 9-23 mg/dL Creatinine 1.06 0.700-1.30 mg/dL Glomerular Filtration Rate Calc 83 >90 mL/min BUN/Creatinine Ratio 7.5 L 10.0-20.0 Serum Glucose 103 74-106 mg/dL Lactic Acid Level 0.9 0.4-2.0 mmol/L Calcium Level 9.6 8.7-10.4 mg/dL Total Bilirubin 0.8 0.2-1.0 mg/dL Aspartate Amino Transferase (AST) 27 13-40 U/L Alanine Aminotransferase (ALT) 30 7-40 U/L Alkaline Phosphatase 82 46-116 U/L Troponin I High Sensitivity 4 </=54 ng/L B-Type Natriuretic Peptide 24.80 0-100 pg/mL Total Protein 7.9 5.7-8.2 g/dL Albumin 4.7 3.2-4.8 g/dL Blood Gas Specimen Type Arterial Blood Gas Sample Site Left radial Blood Gas Patient Temperature 37.0 Arterial Blood Date Drawn [id number] Arterial Blood pH 7.400 7.350-7.450 Arterial Blood Partial Pressure CO2 36.0 35.0-48.0 mmHg Arterial Blood Partial Pressure O2 79.2 L 83.0-108.0 mmHg Arterial Blood HCO3 21.8 21.0-28.0 mmol/L Arterial Blood Oxygen Saturation 94.9 94.0-98.0 % Arterial Blood Base Excess -2.4 L -2.0-3.0 mmol/L Arterial Blood Oxyhemoglobin 93.6 L 94.0-98.0 % Arterial Blood Carboxyhemoglobin 1.0 0.5-1.5 % Arterial Blood Methemoglobin 0.4 0.0-1.5 % Moisés Test Modified Blood Gas Total Hemoglobin 14.80 13.5-17.5 g/dL Blood Gas Liter Flow 3.00 Blood Gas Modality Nasal cannula FiO2 % 32.0 SEPSIS Sepsis Screen Date sepsis recognized/suspect: Jul 20, 2025 Time Sepsis recognized/suspect: 1841 Recent Procedure: No On Antibiotic Therapy: No Respiratory Rate >20: Yes Heart Rate >90: No Temp<36 C (96.8 F) or >38.3 C: No SBP <90 or MAP <65 mmHG: No New Acute Mental Status Change: No Is the patient on CPAP, BIPAP,: No Physician Orders Abg W/ Co-Ox (07/20/25 20:12) Chest Xray 1 View (07/20/25 20:12) Electrocardigram (07/20/25 20:12) Admit (07/20/25 23:32) Code Status (07/20/25 23:32) Oxygen Per Hour (07/20/25 23:32) Hydrocodone-Acet 5/325mg Tab ([place] / (07/20/25 23:45) Ondansetron Hcl (Zofran) (07/20/25 23:45) Complete Blood Count (07/21/25 04:00) Comprehensive Metabolic Panel (07/21/25 04:00) Condition: Unstable (07/20/25 23:32) Acetaminophen Tablet (Tylenol Tablet) (07/20/25 23:45) Enoxaparin Sodium (Lovenox) (07/20/25 23:45) Electrocardigram (07/20/25:32) Regular Diet (07/21/25 Breakfast) Ipratropium Medneb (Atrovent Medneb) (07/21/25 06:00) Albuterol Medneb (Ventolin Medneb) (07/21/25 06:00) Urinalysis (07/20/25 23:32) Drug Screen (07/20/25 23:32) Respiratory Culture W/ Gs (07/20/25 23:32) Magnesium Sulfate 1gm/100ml (07/20/25 23:45) Methylprednisolone Sod Succ (Solu Medrol (07/21/25 10:00) Azithromycin 500mg/ 250ml (Zithromax 50 (07/20/25 23:45) Azithromycin 500mg/ 250ml (Zithromax 50 (07/22/25 10:00) Vital Signs Date Time Temp Pulse Resp B/P (MAP) Pulse Ox O2 Delivery O2 Flow Rate FiO2 07/20/25 23:44 97.9 72 20 121/73 97 3.0 32 97.9 07/20/25 23:40 97.9 72 16 121/73 (89) 95 97.9 07/20/25 23:35 16 Nasal Cannula* 3 32 07/20/25 20:36 20 99 Nasal Cannula* 3 32 07/20/25 20:35 80 20 110/80 (90) 99 07/20/25 20:32 20 96 Nasal Cannula* 3 32 07/20/25 18:39 98.3 89 24 143/96 94 98.3 Laboratory Tests Test 07/20/25 20:30 Lactic Acid Level 0.9 mmol/L (0.4-2.0) White Blood Count 6.3 10^3/uL (4.4-10.8) Medications Medications Dose Ordered Sig/Jeremy Route Start Time Stop Time Status Last Admin Dose Admin Albuterol 2.5 mg ONCE ONCE NEB 07/20/25 20:15 07/20/25 20:16 DC 07/20/25 20:32 2.5 MG Albuterol 2.5 mg ONCE ONCE NEB 07/20/25 23:45 07/20/25 23:46 DC 07/21/25 00:01 2.5 MG Dexamethasone Sodium Phosphate 10 mg ONCE ONCE IM 07/20/25 20:15 07/20/25 20:16 DC 07/20/25 20:42 10 MG Ipratropium [place] 0.5 mg ONCE ONCE NEB 07/20/25 20:15 07/20/25 20:16 DC 07/20/25 20:32 0.5 MG Ipratropium [place] 0.5 mg ONCE ONCE NEB 07/20/25 23:45 07/20/25 23:46 DC 07/21/25 00:01 0.5 MG Ketorolac Tromethamine 30 mg ONCE ONCE IM 07/20/25 23:15 07/20/25 23:16 DC 07/20/25 23:35 30 MG Assessment/Plan Assessment/Plan #Likely acute COPD exacerbation #Acute hypoxic respiratory failure due to above - patient on 3 L of oxygen via nasal cannula -Med nebulization ipratropium bromide 0.5 mg q.4 while awake -med nebulization albuterol 2.5 mg q.4 while awake -azithromycin 500 mg IV daily -methylprednisolone 40 mg IV b.i.d. scheduled -magnesium sulfate 2 g for bronchial relaxation -sputum culture -COVID/flu test negative -chest x-ray -ABG shows low oxygen levels - IV Zofran 4 mg q.4 PRN #Acute back pain, likely musculoskeletal -Toradol 30 IV once -pain management with acetaminophen 650 mg q.6 PRN and [place] 325 mg q.4 PRN DVT prophylaxis: Lovenox 40 mg subcutaneous daily Diet: regular diet Goals of care discussed with the patient for more than 27 minutes: Full code status Case discussed with Dr. Pimentel patient and nurse. Plan discussed with: Patient My Orders Orders - JENIFFER MANZO Procedure Category Date Status Time Admit ADMIT 07/20/25 Transmitted 23:32 Code Status CODE 07/20/25 Transmitted 23:32 Oxygen Per Hour RT 07/20/25 Transmitted 23:32 Hydrocodone-Acet PHA 07/20/25 In Process 5/325mg Tab ([place] 23:45 Ondansetron Hcl PHA 07/20/25 In Process (Zofran) 23:45 Complete Blood Count LAB 07/21/25 Transmitted 04:00 Comprehensive LAB 07/21/25 Transmitted Metabolic Panel 04:00 Condition: Unstable BRITTANY 07/20/25 In Process 23:32 Acetaminophen Tablet PHA 07/20/25 In Process (Tylenol Tablet) 23:45 Enoxaparin Sodium PHA 07/20/25 In Process (Lovenox) 23:45 Electrocardigram EKG 07/20/25 Logged 23:32 Regular Diet DIET 07/21/25 Transmitted Breakfast Ipratropium Medneb PHA 07/21/25 In Process (Atrovent Medneb) 06:00 Albuterol Medneb PHA 07/21/25 In Process (Ventolin Medneb) 06:00 Urinalysis LAB 07/20/25 Logged 23:32 Drug Screen LAB 07/20/25 Logged 23:32 Respiratory Culture CHANEL 07/20/25 Logged W/ Gs 23:32 Magnesium Sulfate PHA 07/20/25 In Process 1gm/100ml 23:45 Methylprednisolone PHA 07/21/25 In Process Sod Succ (Solu Medrol 10:00 Azithromycin 500mg/ PHA 07/20/25 In Process 250ml (Zithromax 50 23:45 Azithromycin 500mg/ PHA 07/22/25 In Process 250ml (Zithromax 50 10:00 Date of Service: Jul 21, 2025 Billing Provider: VIRAJ PIMENTEL MD Common Visit Codes: 30172-PRNKMHX INP/OBS CARE (HIGH) Secondary Visit Codes: 07191-[id number] CARE PLAN 30 MINUTES JENIFFER MANZO Jul 21, 2025 00:03
[2025-07-21] MEDS: AZITHROMYCIN 500MG/250ML 250 ML IV ONE (00:06)
[2025-07-21] MEDS: ENOXAPARIN SOD 40 MG/0.4 ML SYRINGE SC SCH (00:06)
[2025-07-21] MEDS: MAGNESIUM SULFATE 1GM/100ML 100 ML IV SCH (02:22)
[2025-07-21] MEDS: IPRATROPIUM BROM 0.5 MG/2.5ML INH SOL NEB SCH (05:50)
[2025-07-21] MEDS: ALBUTEROL SULF 2.5 MG/0.5ML(0.5%) NEB SOLN NEB SCH (05:50)
[2025-07-21 06:10] LABS: Hematocrit 39.0 % (41.0-53.0); Hemoglobin 13.3 g/dL (13.5-17.5); Mean Corpuscular Hemoglobin 28.8 pg (28.0-32.0); Mean Corpuscular Volume 84.3 fL (80.0-100.0); Nucleated Red Blood Cells % 0.0 %
[2025-07-21 06:28] LABS: Alanine Aminotransferase 27 U/L (7-40); Alkaline Phosphatase 74 U/L (46-116); Anion Gap 12 (5-15); BUN/Creatinine Ratio 10.7 (10.0-20.0); Blood Urea Nitrogen 9 mg/dL (9-23); Calcium 9.5 mg/dL (8.7-10.4); Carbon Dioxide 27 mmol/L (20-31); Chloride 104 mmol/L (98-107); Potassium 4.4 mmol/L (3.5-5.1); Sodium 143 mmol/L (136-145); Total Protein 7.1 g/dL (5.7-8.2)
[2025-07-21 06:29] LABS: Albumin 4.4 g/dL (3.2-4.8); Glucose 127 mg/dL (74-106)
[2025-07-21 06:30] LABS: Bilirubin, Total 0.6 mg/dL (0.2-1.0)
[2025-07-21] MEDS: methylPREDNISolone SOD SUCC 40 MG/ML VL IV SCH (08:55)
--- NOTE | 2025-07-21 15:30 | DVHPNRES ---
Progress Note Date Seen: Jul 21, 2025 Resident Creating Document: AYE POLLACK RESIDENT Medical Necessity Reason Pt with a Central, PICC or Fol: No Subjective Review of Systems 55-year-old male with no significant past medical history has come to the ED with chief complaints of shortness of breath and cough for the past 2 days. Patient reports that he was here at this facility 2 weeks ago, due to similar complaints and was given albuterol inhalers, which he has run out of. He reports that he had increased sudden shortness of breath since yesterday morning which has worsened and is associated with yellow productive cough, mixed with white sputum. 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 He uses a simple mask and reports he has no other protective gear provided to him at work. He also reports of back pain which gets exacerbated on coughing, began today morning, after he drove for a long while. Patient reports that he was admitted at [facility] 2 weeks back with similar complaints. Discharged home on inhaler. PMH: None PSH: None Family history: Reviewed, noncontributory to the management of this case Social history: Patient denies any smoking, alcohol use or illicit drug abuse PCP: Patient does not have one Allergies: None Code status: Full code General: patient denies fever, fatigue, weaknes, sweating, any recent changes in appetite and weight HEENT: No headaches, visiual changes, hearing loss, tinnitus, nasal congestion and discharge, and sore throat. Cardiovascular: Denies chest pain, palpitations, dyspnea on exertion, orthopnea, or claudication. Respiratory: Complaints of shortness of breaths and cough Gastrointestinal: Denies nausea, vomiting, dysphagia, odynophagia, heartburn, abdominal pain, flatulence, bloating, diarrhea, constipation, change in stool, or blood in stool. Genitourinary: No dysuria, hematuria, discharge, frequency, urgency, nocturia, incontinence, and urinary retention. Endocrine: No heat or cold intolerance, polydipsia, polyuria, and polyphagia. Neurological: No dizziness, extremity weakness and numbness, tremors, gait disturbance, seizures, and memory impairment. Psychiatric: Denies depression, anxiety,or insomnia. Musculoskeletal: Denies neck pain, stiffness and swelling, back pain, muscle weakness, joint pain, stiffness, swelling, or limited range of motion. Skin: No rashes, itching, skin lesion, changes in hair, nail, skin texture and breast. Hematologic/Lymphatic: Denies easy bruising, bleeding tendencies, or lymph node enlargement. Objective vital signs Vital Sign Date Time Temp Pulse Resp B/P (MAP) Pulse Ox O2 Delivery O2 Flow Rate FiO2 07/21/25 14:10 84 21 98 07/21/25 12:20 98.3 104/56 (72) 98.3 07/21/25 10:00 Nasal Cannula 3.0 07/21/25 10:00 32 Total Intake and Output 07/20/25 07/20/25 07/21/25 15:00 23:00 07:00 Intake Total 100 ml Balance 100 ml medications Current Medications Medications Dose Ordered Sig/Jeremy Route Start Time Stop Time Status Last Admin Dose Admin Acetaminophen/ Hydrocodone Bitart 1 tab Q4HP PRN PO 07/20/25 23:45 Ondansetron HCl 4 mg Q4HP PRN IV 07/20/25 23:45 Acetaminophen 650 mg Q6HP PRN PO 07/20/25 23:45 Enoxaparin Sodium 40 mg DAILY SC 07/20/25 23:45 07/21/25 00:06 40 MG Ipratropium [place] 0.5 mg Q4HWA [facility] 07/21/25 06:00 07/21/25 14:00 0.5 MG Albuterol 2.5 mg Q4HWA [facility] 07/21/25 06:00 07/21/25 14:00 2.5 MG Methylprednisolone Sodium Succinate 40 mg BID IV 07/21/25 10:00 07/21/25 08:55 40 MG Azithromycin 250 ml @ 125 mls/hr DAILY IV 07/22/25 10:00 Examination General Appearance: Alert, Oriented X3, Cooperative, Not in acute distress HEENT: Atraumatic, Mucous membranes moist/pink, no erythema of pharynx, tonsils, patient on 3 L of oxygen via nasal cannula Respiratory: wheezing present in bilateral lung norman Cardiovascular: Regular rate, Normal S1, Normal S2, No murmurs Abdominal: Active bowel sounds, Soft, no distention, no tenderness Extremities: No edema, Normal pulses, No tenderness/swelling Skin: No Significant rash, except past surgical scars Neuro: Normal speech, sensorimotor deficits none Psych/Mental Status: Mental status NL, Mood NL laboratory and microbiology Laboratory Tests 07/21/25 05:33 Test 07/21/25 05:33 Range/Units Serum Glucose 127 H 74-106 mg/dL Problem List/Assessment/Plan Problem List/Assessment/Plan Assessment/Plan #Likely acute COPD exacerbation #Acute hypoxic respiratory failure due to above -PFT unavailable -patient on 3 L of oxygen via nasal cannula -Med nebulization ipratropium bromide 0.5 mg q.4 while awake -med nebulization albuterol 2.5 mg q.4 while awake -azithromycin 500 mg IV daily -methylprednisolone 40 mg IV b.i.d. scheduled -magnesium sulfate 2 g for bronchial relaxation -sputum culture -COVID/flu test negative -chest x-ray -ABG shows low oxygen levels -IV Zofran 4 mg q.4 PRN #Acute back pain, likely musculoskeletal -Toradol 30 IV once -pain management with acetaminophen 650 mg q.6 PRN and [place] 325 mg q.4 PRN DVT prophylaxis: Lovenox 40 mg subcutaneous daily Diet: regular diet Case discussed with Dr. Lora patient and nurse Plan discussed with: Patient My Orders My Orders Orders - AYE POLLACK RESIDENT Procedure Category Date Status Time Complete Blood Count LAB 07/22/25 Verified 04:00 Comprehensive LAB 07/22/25 Verified Metabolic Panel 04:00 Consult Care CONS 07/21/25 Transmitted Coordinator Date of Service: Jul 21, 2025 Billing Provider: CHICHI LORA MD Common Visit Codes: [id number] INP/OBS CARE(HIGH) AYE POLLACK Jul 21, 2025 15:30 CHICHI LORA MD Jul 21, 2025 16:17
[2025-07-21] MEDS: HYDROcodone-ACET 5/325MG TAB PO PRN (20:57)
[2025-07-21] MEDS: THROAT LOZENGES(CEPASTAT) MT ONE (21:15)
[2025-07-21] MEDS: SALINE 0.65 % NASAL SPRAY 45ML BOTTLE EACHNOSTRI ONE (22:33)
[2025-07-22] VITALS (20 sets, daily range): BP systolic 114–134; BP diastolic 60–79; PULSE 59–85; RESP 14–20; TEMP 97.4–98.6; O2SAT 92–98
[2025-07-22 04:20] LABS: Urine Protein, UAD Negative (Negative)
[2025-07-22 04:34] LABS: Opiate Scree,Urine Neg (NEGATIVE)
[2025-07-22 04:35] LABS: Amphetamine Screen, Urine Neg (NEGATIVE); Barbiturate Scree,Urine Neg (NEGATIVE); Benzodiazephine Screen, Urine Neg (NEGATIVE); Cannabinoid Screen, Urine Neg (NEGATIVE); Cocaine Screen, Urine Neg (NEGATIVE); Phencyclidine Screen, Urine Neg (NEGATIVE)
[2025-07-22 05:47] LABS: Hematocrit 40.2 % (41.0-53.0); Hemoglobin 13.5 g/dL (13.5-17.5); Mean Corpuscular Hemoglobin 28.7 pg (28.0-32.0); Mean Corpuscular Volume 85.5 fL (80.0-100.0); Nucleated Red Blood Cells % 0.0 %
[2025-07-22 06:06] LABS: Alanine Aminotransferase 24 U/L (7-40); Alkaline Phosphatase 81 U/L (46-116); Anion Gap 13 (5-15); BUN/Creatinine Ratio 13.1 (10.0-20.0); Blood Urea Nitrogen 11 mg/dL (9-23); Calcium 9.5 mg/dL (8.7-10.4); Carbon Dioxide 25 mmol/L (20-31); Chloride 104 mmol/L (98-107); Potassium 4.6 mmol/L (3.5-5.1); Sodium 142 mmol/L (136-145); Total Protein 6.9 g/dL (5.7-8.2)
[2025-07-22 06:07] LABS: Albumin 4.2 g/dL (3.2-4.8); Bilirubin, Total 0.4 mg/dL (0.2-1.0)
[2025-07-22 06:12] LABS: Glucose 177 mg/dL (74-106)
[2025-07-22] MEDS: AZITHROMYCIN 500MG/250ML 250 ML IV SCH (08:57)
--- NOTE | 2025-07-22 13:55 | DVHPNRES ---
Progress Note Date Seen: Jul 22, 2025 Resident Creating Document: AYE POLLACK Medical Necessity Reason Pt with a Central, PICC or Fol: No Subjective Review of Systems Patient seen at bedside. No new complaints. On 3 L of oxygen.Plan to start weaning off. 55-year-old male with no significant past medical history has come to the ED with chief complaints of shortness of breath and cough for the past 2 days. Patient reports that he was here at this facility 2 weeks ago, due to similar complaints and was given albuterol inhalers, which he has run out of. He reports that he had increased sudden shortness of breath since yesterday morning which has worsened and is associated with yellow productive cough, mixed with white sputum. 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 He uses a simple mask and reports he has no other protective gear provided to him at work. He also reports of back pain which gets exacerbated on coughing, began today morning, after he drove for a long while. Patient reports that he was admitted at [facility] 2 weeks back with similar complaints. Discharged home on inhaler. PMH: None PSH: None Family history: Reviewed, noncontributory to the management of this case Social history: Patient denies any smoking, alcohol use or illicit drug abuse PCP: Patient does not have one Allergies: None Code status: Full code General: patient denies fever, fatigue, weaknes, sweating, any recent changes in appetite and weight HEENT: No headaches, visiual changes, hearing loss, tinnitus, nasal congestion and discharge, and sore throat. Cardiovascular: Denies chest pain, palpitations, dyspnea on exertion, orthopnea, or claudication. Respiratory: Complaints of shortness of breaths and cough Gastrointestinal: Denies nausea, vomiting, dysphagia, odynophagia, heartburn, abdominal pain, flatulence, bloating, diarrhea, constipation, change in stool, or blood in stool. Genitourinary: No dysuria, hematuria, discharge, frequency, urgency, nocturia, incontinence, and urinary retention. Endocrine: No heat or cold intolerance, polydipsia, polyuria, and polyphagia. Neurological: No dizziness, extremity weakness and numbness, tremors, gait disturbance, seizures, and memory impairment. Psychiatric: Denies depression, anxiety,or insomnia. Musculoskeletal: Denies neck pain, stiffness and swelling, back pain, muscle weakness, joint pain, stiffness, swelling, or limited range of motion. Skin: No rashes, itching, skin lesion, changes in hair, nail, skin texture and breast. Hematologic/Lymphatic: Denies easy bruising, bleeding tendencies, or lymph node enlargement. Objective vital signs Vital Sign Date Time Temp Pulse Resp B/P (MAP) Pulse Ox O2 Delivery O2 Flow Rate FiO2 07/22/25 09:53 74 16 94 07/22/25 09:47 Nasal Cannula 3.0 07/22/25 09:47 32 07/22/25 09:00 98.1 119/66 (83) 98.1 Total Intake and Output 07/21/25 07/21/25 07/22/25 15:00 23:00 07:00 Intake Total 240 ml 120 ml 650 ml Output Total 0 ml Balance 240 ml 120 ml 650 ml medications Current Medications Medications Dose Ordered Sig/Jeremy Route Start Time Stop Time Status Last Admin Dose Admin Acetaminophen/ Hydrocodone Bitart 1 tab Q4HP PRN PO 07/20/25 23:45 07/21/25 20:57 1 TAB Ondansetron HCl 4 mg Q4HP PRN IV 07/20/25 23:45 Acetaminophen 650 mg Q6HP PRN PO 07/20/25 23:45 Enoxaparin Sodium 40 mg DAILY SC 07/20/25 23:45 07/22/25 08:58 40 MG Ipratropium [place] 0.5 mg Q4HWA [facility] 07/21/25 06:00 07/22/25 09:47 0.5 MG Albuterol 2.5 mg Q4HWA [facility] 07/21/25 06:00 07/22/25 09:47 2.5 MG Methylprednisolone Sodium Succinate 40 mg BID IV 07/21/25 10:00 07/22/25 08:58 40 MG Azithromycin 250 ml @ 125 mls/hr DAILY IV 07/22/25 10:00 07/22/25 08:57 125 MLS/HR Examination General Appearance: Alert, Oriented X3, Cooperative, Not in acute distress HEENT: Atraumatic, Mucous membranes moist/pink, no erythema of pharynx, tonsils, patient on 3 L of oxygen via nasal cannula Respiratory: wheezing present in bilateral lung norman Cardiovascular: Regular rate, Normal S1, Normal S2, No murmurs Abdominal: Active bowel sounds, Soft, no distention, no tenderness Extremities: No edema, Normal pulses, No tenderness/swelling Skin: No Significant rash, except past surgical scars Neuro: Normal speech, sensorimotor deficits none Psych/Mental Status: Mental status NL, Mood NL laboratory and microbiology Laboratory Tests 07/22/25 04:59 Test 07/22/25 04:59 Range/Units Serum Glucose 177 H 74-106 mg/dL Problem List/Assessment/Plan Problem List/Assessment/Plan Assessment/Plan #Likely acute COPD exacerbation #Acute hypoxic respiratory failure due to above -PFT unavailable -patient on 3 L of oxygen via nasal cannula -Med nebulization ipratropium bromide 0.5 mg q.4 while awake -med nebulization albuterol 2.5 mg q.4 while awake -azithromycin 500 mg IV daily -methylprednisolone 40 mg IV b.i.d. scheduled -magnesium sulfate 2 g for bronchial relaxation -sputum culture -COVID/flu test negative -chest x-ray -ABG shows low oxygen levels -IV Zofran 4 mg q.4 PRN #Acute back pain, likely musculoskeletal -Toradol 30 IV once -pain management with acetaminophen 650 mg q.6 PRN and [place] 325 mg q.4 PRN DVT prophylaxis: Lovenox 40 mg subcutaneous daily Diet: regular diet Case discussed with Dr. Lora patient and nurse Plan discussed with: Patient My Orders My Orders Orders - AYE POLLACK Procedure Category Date Status Time Consult Care CONS 07/21/25 Transmitted Coordinator Communication Order ORDERS 07/22/25 Transmitted 13:48 Date of Service: Jul 22, 2025 Billing Provider: AYE POLLACK Common Visit Codes: [id number] INP/OBS CARE(HIGH) AYE POLLACK Jul 22, 2025 13:55 CHICHI LORA MD Jul 22, 2025 22:30
[2025-07-23] VITALS (11 sets, daily range): BP systolic 116–137; BP diastolic 76–85; PULSE 55–70; RESP 16–20; TEMP 36.8; O2SAT 93–97
[2025-07-23 07:22] LABS: Hematocrit 40.4 % (41.0-53.0); Hemoglobin 13.4 g/dL (13.5-17.5); Mean Corpuscular Hemoglobin 28.5 pg (28.0-32.0); Mean Corpuscular Volume 85.8 fL (80.0-100.0); Nucleated Red Blood Cells % 0.0 %
[2025-07-23 07:31] LABS: Alanine Aminotransferase 21 U/L (7-40); Alkaline Phosphatase 72 U/L (46-116); Anion Gap 11 (5-15); BUN/Creatinine Ratio 14.6 (10.0-20.0); Blood Urea Nitrogen 12 mg/dL (9-23); Calcium 9.3 mg/dL (8.7-10.4); Carbon Dioxide 28 mmol/L (20-31); Chloride 105 mmol/L (98-107); Potassium 4.9 mmol/L (3.5-5.1); Sodium 144 mmol/L (136-145); Total Protein 6.8 g/dL (5.7-8.2)
[2025-07-23 07:32] LABS: Albumin 4.1 g/dL (3.2-4.8); Bilirubin, Total 0.5 mg/dL (0.2-1.0); Glucose 121 mg/dL (74-106)
[2025-07-23] MEDS ORDERED: AZITTAB PO (12:06)
[2025-07-23] MEDS ORDERED: ALBU108A5 IN (12:06)
[2025-07-23] MEDS ORDERED: METH4PAK PO (12:06)
[2025-07-23] MEDS ORDERED: FLUT250M2 INH (12:06)
--- NOTE | 2025-07-23 13:50 | DVHDSRES ---
Discharge Summary Date of Admission Resident Creating Document: AYE POLLACK RESIDENT Jul 20, 2025 at 23:32 Date of Discharge: Jul 23, 2025 Labs/Diagnostic Data: Laboratory Results Test 07/23/25 05:50 07/22/25 04:05 07/20/25 20:56 07/20/25 20:30 White Blood Count 6.1 10^3/uL (4.4-10.8) Red Blood Count 4.71 10^6/uL (4.5-5.90) Hemoglobin 13.4 g/dL (13.5-17.5) Hematocrit 40.4 % (41.0-53.0) Mean Corpuscular Volume 85.8 fL (80.0-100.0) Mean Corpuscular Hemoglobin 28.5 pg (28.0-32.0) Mean Corpuscular Hemoglobin Concent 33.2 g/dL (32.0-36.0) Red Cell Distribution Width 14.4 % (11.8-14.3) Platelet Count 236 10^3/uL (140-450) Mean Platelet Volume 7.9 fL (6.9-10.8) Neutrophils (%) (Auto) 87.7 % (37.0-80.0) Lymphocytes (%) (Auto) 9.7 % (10.0-50.0) Monocytes (%) (Auto) 2.5 % (0.0-12.0) Eosinophils (%) (Auto) 0.0 % (0.0-7.0) Basophils (%) (Auto) 0.1 % (0.0-2.0) Neutrophils # (Auto) 5.3 10 ^3/uL (1.6-8.6) Lymphocytes # (Auto) 0.6 10 ^3/uL (0.4-5.4) Monocytes # (Auto) 0.1 10 ^3/uL (0-1.3) Eosinophils # (Auto) 0 10 ^3/uL (0-0.8) Basophils # (Auto) 0 10 ^3/uL (0-0.2) Nucleated Red Blood Cells 0.0 % Sodium Level 144 mmol/L (136-145) Potassium Level 4.9 mmol/L (3.5-5.1) Chloride Level 105 mmol/L (98-107) Carbon Dioxide Level 28 mmol/L (20-31) Anion Gap 11 (5-15) Blood Urea Nitrogen 12 mg/dL (9-23) Creatinine 0.82 mg/dL (0.700-1.30) Glomerular Filtration Rate Calc 104 mL/min (>90) BUN/Creatinine Ratio 14.6 (10.0-20.0) Serum Glucose 121 mg/dL (74-106) Calcium Level 9.3 mg/dL (8.7-10.4) Total Bilirubin 0.5 mg/dL (0.2-1.0) Aspartate Amino Transferase (AST) 15 U/L (13-40) Alanine Aminotransferase (ALT) 21 U/L (7-40) Alkaline Phosphatase 72 U/L (46-116) Total Protein 6.8 g/dL (5.7-8.2) Albumin 4.1 g/dL (3.2-4.8) Urine Color Light-yellow (Yellow) Urine Clarity Clear (Clear) Urine pH 6.5 (5.0-9.0) Urine Specific [place] 1.013 (1.001-1.035) Urine Protein Negative (Negative) Urine Ketones Negative (Negative) Urine Blood Negative /uL (Negative) Urine Nitrite Negative (Negative) Urine Bilirubin Negative (Negative) Urine Urobilinogen Normal mg/dL (Negative) Urine Leukocyte Esterase Negative /uL (Negative) Urine RBC <1 /hpf (0 - 3) Urine Microscopic WBC < 1 /HPF (0-3) Urine Squamous Epithelial Cells None seen /hpf (<5) Urine Bacteria None seen /hpf (None Seen) Urine Glucose Normal mg/dL (Normal) Urine Opiates Screen Neg (NEGATIVE) Urine Fentanyl Screen Neg (NEGATIVE) Urine Barbiturates Screen Neg (NEGATIVE) Urine Phencyclidine Screen Neg (NEGATIVE) Urine Amphetamines Screen Neg (NEGATIVE) Urine Benzodiazepines Screen Neg (NEGATIVE) Urine Cocaine Screen Neg (NEGATIVE) Urine Cannabinoids Screen Neg (NEGATIVE) Influenza Type A Antigen Negative (Negative) Influenza Type B Antigen Negative (Negative) SARS-CoV-2 Antigen (Rapid) Negative (NEGATIVE) Lactic Acid Level 0.9 mmol/L (0.4-2.0) Troponin I High Sensitivity 4 ng/L (</=54) B-Type Natriuretic Peptide 24.80 pg/mL (0-100) Test 07/20/25 20:28 Blood Gas Specimen Type Arterial Blood Gas Sample Site Left radial Blood Gas Patient Temperature 37.0 Arterial Blood Date Drawn [id number] Arterial Blood pH 7.400 (7.350-7.450) Arterial Blood Partial Pressure CO2 36.0 mmHg (35.0-48.0) Arterial Blood Partial Pressure O2 79.2 mmHg (83.0-108.0) Arterial Blood HCO3 21.8 mmol/L (21.0-28.0) Arterial Blood Oxygen Saturation 94.9 % (94.0-98.0) Arterial Blood Base Excess -2.4 mmol/L (-2.0-3.0) Arterial Blood Oxyhemoglobin 93.6 % (94.0-98.0) Arterial Blood Carboxyhemoglobin 1.0 % (0.5-1.5) Arterial Blood Methemoglobin 0.4 % (0.0-1.5) Moisés Test Modified Blood Gas Total Hemoglobin 14.80 g/dL (13.5-17.5) Blood Gas Liter Flow 3.00 Blood Gas Modality Nasal cannula FiO2 % 32.0 Other Laboratory Tests 07/23/25 05:50 Brief Hx & Hospital Course: 55-year-old male with no significant past medical history has come to the ED with chief complaints of shortness of breath and cough for the past 2 days. Patient reported that he was here at this facility 2 weeks ago, due to similar complaints and was given albuterol inhalers, which he had run out of. He reports that he had increased sudden shortness of breath since 1 day which has worsened and is associated with yellow productive cough, mixed with white sputum. 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 He uses a simple mask and reports he has no other protective gear provided to him at work. He also reports of back pain which gets exacerbated on coughing, began on the admission day, after he drove for a long while. Patient reports that he was admitted at [facility] 2 weeks back with similar complaints. While in the hospital he was treated with 3litre oxygen, gradually weaned off, antibiotics, nebulizations and steroids. During the course of the hospitalization, the patient was clinically better and hence being discharged. Condition at Discharge: Fair Final Diagnosis/Problems List #Acute COPD exacerbation #Acute hypoxic respiratory failure due to above #Lumbar strain, muskuloskeletal Discharge Disposition: Home Discharge Instruct/Medications Diet: Regular Activity: No Restrictions, As Tolerated Follow Up/Referral: f/u with PCP in 7 days Medications: as per EHR Scheduled Albuterol Sulfate (Albuterol Sulfate Hfa), 108 MCG IN TID Azithromycin (Zithromax Z-Travon), 250 MG PO DAILY Docusate Sodium (Colace), 1 CAP PO BID Fluticasone-Salmeterol (Advair Diskus 250/50), 1 PUFF INH BID Methylprednisolone (Medrol Dosepak), 4 MG PO UD Scheduled PRN Phenylephrine-Shark Liver Oil- (Hemorrhoidal Suppositorie 0.25-3-85.5 %), 1 SUP IA BIDPRN PRN Discontinued Medications Azithromycin (Azithromycin), 1 TAB PO DAILY Prednisone (Prednisone), 60 MG PO DAILY Promethazine-Dm (Promethazine Dm 6.25-15 mg/5Ml), 5 ML PO TID Discharge Statement: "Patient was advised to return to the ER or call 911 if any headaches, dizziness, shortness of breath, chest pain, abdominal pain, bleeding, fevers, or worsening of medical condition. Patient was counseled about treatment plan, medications, possible side effects, patientverbalized understanding. All questions were answered to the best of my ability. This discharge took greater then 30 minutes in planning, reviewing documentation, counseling the patient, and discussing with other team members." ASSESSMENT ASSESSMENT Assessment COPD exacerbation Date of Service: Jul 23, 2025 Billing Provider: CHICHI LORA MD Common Visit Codes: [id number] DISCH DAY >30min AYE POLLACK RESIDENT Jul 23, 2025 13:50 CHICHI LORA MD Jul 24, 2025 00:05
--- NOTE | 2025-07-26 07:32 | ECG ---
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
--- NOTE | 2025-07-28 22:45 | DVHPN2 ---
Date of Service: Jul 22, 2025 Billing Provider: CHICHI LORA MD Common Visit Codes: [id number] INP/OBS CARE(HIGH) CHICHI LORA MD Jul 28, 2025 22:45
== END 2025-07-23 14:25 | disposition home or self-care (01) | DRG 189 ==
LOC: ER 18:36 → OVERFLOW 23:32 → TELE-WESTW 07-21 16:40
PROVIDERS: ADMIT Internal Medicine; ATTEND Internal Medicine
DX: J96.01 Acute respiratory failure with hypoxia (principal); J44.1 Chronic obstructive pulmonary disease with (acute) exacerbation; J45.901 Unspecified asthma with (acute) exacerbation; Z20.822 Contact with and (suspected) exposure to COVID-19; S39.012A Strain of muscle, fascia and tendon of lower back, initial encounter; X58.XXXA Exposure to other specified factors, initial encounter; Y93.89 Activity, other specified; Y92.89 Other specified places as the place of occurrence of the external cause; Y99.8 Other external cause status
CPT/HCPCS: 36415; 36600; 71045; 80053; 80307; 81001; 82805; 83605; 83880; 84484; 85025; 87426; 87804; 93005; 94640; 96372; G0378; J1100; J1885